=== PATIENT | female | born 1960 | race Caucasian/White ===

== ENCOUNTER 2020-07-06 13:47 | Outpatient (REF) | payer MEDICAID, SELFPAY | END 2020-07-06 13:48 | disposition home or self-care (01) | LOC: HO.LAB 13:47 | PROVIDERS: Visit Provider Internal Medicine | DX: Z20.828 Contact with and (suspected) exposure to other viral communicable diseases (principal) | CPT/HCPCS: C9803; U0003 ==

== ENCOUNTER 2020-11-28 11:02 | Outpatient (REF) | payer MEDICAID, SELFPAY ==
--- NOTE | ~2020-11-28 | MM_ITS ---
EXAMINATION: MM SCREENING DIGITAL BREAST TOMOSYNTHESIS, BILATERAL CLINICAL INFORMATION: Screening. Asymptomatic. The lifetime risk of breast cancer based on the Tyrer-Cuzick Model is 5%. COMPARISON: Mammography: 09/21/2019, 07/09/2018, 06/18/2017 TECHNIQUE: Digital breast tomosynthesis is performed in both the craniocaudal and mediolateral oblique views along with computer-aided detection (CAD). Synthesized 2D images are generated from the tomosynthesis. FINDINGS: There are scattered areas of fibroglandular density (ACR BI-RADS breast composition Category b). There are no significant masses, abnormal calcifications, or other abnormalities. No developing density. The axilla and skin contours are unremarkable. MM/MM tomosynthesis screening BI IMPRESSION: No mammographic evidence of malignancy. ASSESSMENT: BI-RADS 1: Negative RECOMMENDATION: Routine annual mammography screening. This patient's information was entered into a reminder system with a target due date for their next mammogram.
== END 2020-11-28 11:03 | disposition home or self-care (01) ==
LOC: HO.MAMMO 11:02
PROVIDERS: Visit Provider Family Medicine
DX: Z12.31 Encounter for screening mammogram for malignant neoplasm of breast (principal)
CPT/HCPCS: 77063; 77067

== ENCOUNTER 2021-02-28 14:00 | Outpatient (RCR) | payer MEDICAID, SELFPAY | END 2021-03-14 18:12 | disposition home or self-care (01) | LOC: HO.PT 14:00 | PROVIDERS: PCP Family Medicine; Visit Provider Family Medicine | DX: M79.672 Pain in left foot (principal) | CPT/HCPCS: 97035; 97110; 97112; 97140; 97150; 97161 ==

== ENCOUNTER 2021-12-02 10:58 | Outpatient (REF) | payer MEDICAID, SELFPAY ==
--- NOTE | ~2021-12-02 | MM_ITS ---
EXAMINATION: MM SCREENING DIGITAL BREAST TOMOSYNTHESIS, BILATERAL CLINICAL INFORMATION: Screening. Asymptomatic. The lifetime risk of breast cancer based on the Tyrer-Cuzick Model is 5%. COMPARISON: Mammography: 11/28/2020, 09/21/2019, 07/09/2018 TECHNIQUE: Digital breast tomosynthesis is performed in both the craniocaudal and mediolateral oblique views along with computer-aided detection (CAD). Synthesized 2D images are generated from the tomosynthesis. Additional exaggerated right CC view is provided. FINDINGS: There are scattered areas of fibroglandular density (ACR BI-RADS breast composition Category b). There are no significant masses, abnormal calcifications, or other abnormalities. Parenchymal pattern is similar to prior studies. No architectural abnormality or developing density. MM/MM tomosynthesis screening BI IMPRESSION: No mammographic evidence of malignancy. ASSESSMENT: BI-RADS 1: Negative RECOMMENDATION: Routine annual mammography screening. This patient's information was entered into a reminder system with a target due date for their next mammogram.
== END 2021-12-02 10:59 | disposition home or self-care (01) ==
LOC: HO.MAMMO 10:58
PROVIDERS: PCP Family Medicine; Visit Provider Family Medicine
DX: Z12.31 Encounter for screening mammogram for malignant neoplasm of breast (principal)
CPT/HCPCS: 77063; 77067

== ENCOUNTER 2022-02-17 08:55 | Outpatient (REF) | payer MEDICAID, SELFPAY ==
[2022-02-17 11:06] LABS: Hematocrit 38.3 % (37.0-47.0); Hemoglobin 12.3 g/dl (12.0-16.0); Mean Corpuscular HGB Conc 32.1 g/dl (31.0-35.0); Mean Corpuscular Hemoglobin 29.4 pg (27.0-33.0); Mean Corpuscular Volume 91.6 fL (80.0-98.0); Mean Platelet Volume 10.5 fL (9.4-12.3); Platelet Count 225 X10*3/uL (160-400); Red Blood Count 4.18 X10*6/uL (4.20-5.50); Red Cell Distribution Width 13.3 % (11.0-16.0); White Blood Count 6.5 X10*3/uL (4.8-10.8)
[2022-02-17 11:19] LABS: Estimated Average Glucose 117 mg/dL; Hemoglobin A1c % 5.7 %
[2022-02-17 11:28] LABS: Alanine Aminotransferase 20 U/L (0-31); Albumin Level 4.1 g/dL (3.5-5.0); Alkaline Phosphatase 80 U/L (39-117); Anion Gap 11 (12-20); Aspartate Amino Transferase 16 U/L (5-31); Bilirubin Direct 0.2 mg/dL (0.0-0.5); Bilirubin Total 0.3 mg/dL (0.0-1.0); Blood Urea Nitrogen 20 mg/dL (9-16); Calcium 9.1 mg/dL (8.4-10.2); Carbon Dioxide 31 mmol/L (22-29); Chloride 99 mmol/L (96-108); Cholesterol 184 mg/dL; Estimated Glomerular Filt Rate > 60; Glucose Fasting 92 mg/dL (60-99); HDL Cholesterol 56 mg/dL; LDL Cholesterol Calculated 109 mg/dl; Potassium 3.6 mmol/L (3.3-5.1); Sodium 137 mmol/L (135-145); Total Protein 7.2 g/dL (6.5-8.0); Triglycerides 96 mg/dL
[2022-02-17 11:47] LABS: Creatinine Urine 89.08 mg/dL; Microalbumin Urine < 5.0 mg/L
[2022-02-17 11:51] LABS: Free T4 (Free Thyroxine) 0.94 ng/dL (0.71-1.85); Thyroid Stimulating Hormone 2.92 uIU/mL (0.32-4.0); Vitamin D 25-OH Total 39.4 ng/mL (>30)
== END 2022-02-17 08:56 | disposition home or self-care (01) ==
LOC: HO.10HDL 08:55
PROVIDERS: Visit Provider Family Medicine
DX: Z00.00 Encounter for general adult medical examination without abnormal findings (principal); I10 Essential (primary) hypertension
CPT/HCPCS: 36415; 80048; 80061; 80076; 82043; 82306; 83036; 84439; 84443; 85027

== ENCOUNTER 2022-12-15 13:07 | Outpatient (REF) | payer MEDICAID, SELFPAY ==
--- NOTE | ~2022-12-15 | MM_ITS ---
EXAMINATION: MM SCREENING DIGITAL BREAST TOMOSYNTHESIS, BILATERAL CLINICAL INFORMATION: Screening. Asymptomatic. The lifetime risk of breast cancer based on the Tyrer-Cuzick Model is 5%. COMPARISON: Mammography: 12/02/2021, 11/28/2020, 09/21/2019 TECHNIQUE: Digital breast tomosynthesis is performed in both the craniocaudal and mediolateral oblique views along with computer-aided detection (CAD). Synthesized 2D images are generated from the tomosynthesis. FINDINGS: There are scattered areas of fibroglandular density (ACR BI-RADS breast composition Category b). There are no significant masses, abnormal calcifications, or other abnormalities. No architectural abnormality or developing density or significant change from prior studies. The axilla and skin contours are unremarkable. MM/MM tomosynthesis screening BI IMPRESSION: No mammographic evidence of malignancy. ASSESSMENT: BI-RADS 1: Negative RECOMMENDATION: Routine annual mammography screening. This patient's information was entered into a reminder system with a target due date for their next mammogram.
== END 2022-12-15 13:08 | disposition home or self-care (01) ==
LOC: HO.MAMMO 13:07
PROVIDERS: Visit Provider Family Medicine
DX: Z12.31 Encounter for screening mammogram for malignant neoplasm of breast (principal)
CPT/HCPCS: 77063; 77067

== ENCOUNTER 2022-12-17 12:50 | Outpatient (REF) | payer MEDICAID, SELFPAY ==
--- NOTE | ~2022-12-17 | XR_ITS ---
Examination: Right foot and right ankle. CLINICAL INDICATION: Pain for one month. No injury COMPARISON: None. technique:: Right foot 3 views and right ankle 3 views. FINDINGS: Right foot: There is no visible fracture, dislocation or subluxation seen. No bony erosive changes. The soft tissues are normal. Right ankle: The ankle mortise and subtalar joints are normal. There is a moderate size retrocalcaneal and a small calcaneal heel and dorsal tarsometatarsal enthesophytes. There is mild dorsal midfoot soft tissue swelling. No visible acute fracture, dislocation or subluxation seen. XR/XR foot RT min 3V IMPRESSION: 1. Moderate size retrocalcaneal, small calcaneal heel and dorsal tarsometatarsal enthesophytes. There is mild dorsal midfoot soft tissue swelling. 2. No visible acute fracture or dislocation seen.
--- NOTE | ~2022-12-17 | XR_ITS ---
Examination: Right foot and right ankle. CLINICAL INDICATION: Pain for one month. No injury COMPARISON: None. technique:: Right foot 3 views and right ankle 3 views. FINDINGS: Right foot: There is no visible fracture, dislocation or subluxation seen. No bony erosive changes. The soft tissues are normal. Right ankle: The ankle mortise and subtalar joints are normal. There is a moderate size retrocalcaneal and a small calcaneal heel and dorsal tarsometatarsal enthesophytes. There is mild dorsal midfoot soft tissue swelling. No visible acute fracture, dislocation or subluxation seen. XR/XR ankle RT min 3V IMPRESSION: 1. Moderate size retrocalcaneal, small calcaneal heel and dorsal tarsometatarsal enthesophytes. There is mild dorsal midfoot soft tissue swelling. 2. No visible acute fracture or dislocation seen.
== END 2022-12-17 12:51 | disposition home or self-care (01) ==
LOC: HO.HHCX 12:50
PROVIDERS: Visit Provider Family Medicine
DX: M79.671 Pain in right foot (principal)
CPT/HCPCS: 73610; 73630

== ENCOUNTER 2023-04-29 11:25 | Emergency (ER) | payer MEDICAID, SELFPAY ==
--- NOTE | ~2023-04-29 | XR_ITS ---
EXAMINATION: XR ANKLE, RIGHT XR FOOT, RIGHT CLINICAL INFORMATION: Pain. Twisting injury. COMPARISON: Right ankle and foot radiographs dated 12/17/2022. TECHNIQUE: AP, oblique, and lateral views of the right foot and ankle. FINDINGS: No acute fracture or dislocation. Tiny ossicle versus remote unfused fracture fragment adjacent to the lateral malleolus, unchanged. The ankle mortise is maintained. Joint space narrowing with marginal osteophytes at the dorsal aspect of the cuneonavicular and tarsometatarsal joints. Plantar and dorsal calcaneal spurs. Circumferential subcutaneous edema. XR/XR foot RT min 3V IMPRESSION: 1. No acute fracture or dislocation. 2. Circumferential subcutaneous edema. 3. 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 4. Plantar and dorsal calcaneal spurs.
--- NOTE | ~2023-04-29 | XR_ITS ---
EXAMINATION: XR ANKLE, RIGHT XR FOOT, RIGHT CLINICAL INFORMATION: Pain. Twisting injury. COMPARISON: Right ankle and foot radiographs dated 12/17/2022. TECHNIQUE: AP, oblique, and lateral views of the right foot and ankle. FINDINGS: No acute fracture or dislocation. Tiny ossicle versus remote unfused fracture fragment adjacent to the lateral malleolus, unchanged. The ankle mortise is maintained. Joint space narrowing with marginal osteophytes at the dorsal aspect of the cuneonavicular and tarsometatarsal joints. Plantar and dorsal calcaneal spurs. Circumferential subcutaneous edema. XR/XR ankle RT min 3V IMPRESSION: 1. No acute fracture or dislocation. 2. Circumferential subcutaneous edema. 3. 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 4. Plantar and dorsal calcaneal spurs.
--- NOTE | 2023-04-29 11:38 | ED_ITS ---
HPI - Extremity Injury (Lower) General Chief Complaint: Extremity Problem Stated Complaint: R foot pain Time Seen by Provider: 04/29/23 12:49 Source: patient and auto transmission specialist Mode of arrival: ambulatory Limitations: language barrier History of Present Illness HPI Narrative: Patient is a 62 year old assigned female at with no reported medical history presenting to the emergency department today with right ankle pain. Patient states that yesterday she fell and twisted her right ankle and she continues to have pain today. Patient denies any numbness or tingling. Patient denies any head strike or loss of consciousness. Patient denies any dizziness, lightheadedness, abdominal pain, nausea, vomiting, fever, chills, blurry vision, double vision, loss of vision, chest pain, difficulty breathing, shortness of b reath, back pain, night sweats, pain with urination, increased urinary frequency, increased urinary urgency, blood in her urine or stool, syncope or a near syncopal episode, bowel incontinence, bladder incontinence, bowel retention, bladder retention, or any other complaints at this time. MD complaint: ankle injury Onset (ago): day(s) (1) Severity: mild Severity scale (1-10): 3 Other symptoms: none Related Data Allergies Allergy/AdvReac Type Severity Reaction Status Date / Time No Known Allergies Allergy Unverified 06/20/21 14:54 [No Known Allergies*] Review of Systems Constitutional: Constitutional: Reports no additional constitutional complaints, Denies chills, Denies fever(s) and Denies night sweats Eyes: Eyes: Reports no additional eye complaints, Denies blurry vision, Denies change in vision, Denies diplopia, Denies eye discharge, Denies loss of vision and Denies eye pain ENT: Denies dizziness Cardiovascular: Cardiovascular: Reports no additional cardiovascular complaints, Denies chest pain, Denies lightheadedness, Denies Loss of Consciousness and Denies dyspnea Respiratory: Respiratory: Reports no additional respiratory complaints and Denies dyspnea Gastrointestinal: Gastrointestinal: Reports no additional gastrointestinal complaints, Denies abdominal pain, Denies melena, Denies hematochezia, Denies change in bowel habits and Denies change in stool character Genitourinary: Genitourinary: Denies hematuria, Denies urinary frequency, Denies dysuria, Denies urinary incontinence, Denies urinary hesitancy and Denies urinary urgency Musculoskeletal: Musculoskeletal: Reports no additional musculoskeletal complaints, Denies numbness and Denies tingling Comments: right ankle pain and swelling Neurologic: Denies dizziness, Denies loss of vision, Denies numbness and Denies tingling Psychiatric: Psychiatric: Reports no additional psychiatric complaints Endocrine: Endocrine: Reports no additional endocrine complaints Hematologic/Lymphatic: Hematologic/Lymphatic: Reports no additional hematologic/lymphatic complaints Allergic/Immunologic: Allergic/Immunologic: Reports no additional allergic/immunologic complaints PMFSH Past Medical History Attestation statement: The following information was validated with the patient. Source: old records reviewed and nursing notes reviewed Social History Social History Advance Directives: No Physical Exam Vital Signs: Vital Signs: Last Vital Signs Temp 98.2 F 04/29/23 11:39 Pulse 83 04/29/23 11:39 Resp 16 04/29/23 11:39 BP 142/82 H 04/29/23 11:39 Pulse Ox 98 04/29/23 11:39 O2 Del Method Room Air 04/29/23 11:39 BMI result Body Mass Index 32.3 Const: General: cooperative, no acute distress, alert and awake Nutritional Appearance: well nourished Orientation/consciousness: patient oriented x3 Limitations: no limitations HEENT: Head: Yes normal to inspection and Yes atraumatic Ears: hearing grossly normal bilaterally and external ears normal General nose exam: Normal external nose present, no nasal discharge noted and no epistaxis Face and sinus: Yes normal facial exam, No abrasion and No laceration Mouth: Normal oral and palatal mucosa present, no drooling and no muffled voice Eyes: General: appearance normal, both eyes and all related structures Periorbital: periorbital findings normal Eyelids: Yes eyelids normal Conjunctivae: conjunctivae normal Pupils: Equal, round and reactive pupils present EOM: EOMs intact bilaterally Neck: Neck: Yes normal visual inspection, Yes full ROM and Yes no lymphadenopathy Chest: Chest palpation & inspection: normal inspection of the chest Resp: Effort & Inspection: normal respiratory effort and able to speak in complete sentences GI: Inspection: Yes normal to inspection Neuro: General: patient oriented x3 and moves all extremities Cranial nerves: Yes Equal, round and reactive pupils present Cognition (Neuro): normal cognition Motor exam (neuro): 5/5 motor strength present throughout Sensory Exam: Normal double simultaneous stimulation for sensation Coordination: [id number] test normal Extrem: Other: minimal swelling present to the right ankle General: Yes full ROM and Yes capillary refill normal Psych: Appearance: grossly normal Mental Status: mental status grossly normal Affect: normal affect Attitude: cooperative Thought process: Normal thought process present Thought content: Normal thought content present Insight: Good insight present (Psych) Course Course Course Narrative: RME: 62 yo female presents with R ankle pain s/p trip and fall yesterday. Reports twisting her right ankle during fall yesterday. No head strike or LOC. R ankle swelling and diffuse ttp >lateral malleolus. NV intact. ambulating w/mild limp XR ordered Full HPI, ROS and PE to be performed by primary ED provider. Medical Decision Making Medical Decision Making MDM Narrative: Patient is a 62 year old assigned female at with no reported medical history presenting to the emergency department today with right ankle pain and swelling. Patient's physical exam showed minimal swelling to the right ankle but was otherwise unremarkable. Patient's right foot and ankle x-rays showed no acute process. I explained my physical exam findings as well as all test results to the patient. I answered all questions asked by the patient. I stressed the importance of the patient taking her medication as prescribed. I stressed the importance of the patient following up with her primary care provider. I stressed the importance of the patient returning to the emergency department immediately if her symptoms were to worsen or if she were to develop any dizziness, shortness of breath, difficulty breathing, chest pain, blurry vision, loss of vision, nausea, vomiting, abdominal pain, fever, chills, back pain, or any other complaints. Patient verbalized agreement and understanding with this treatment plan and discharge. Differential Diagnosis Differential Diagnoses: The differential diagnosis associated with the presentation includes Right ankle sprain Right ankle strain Right ankle pain Right ankle injury Independent Interpretation I performed an independent interpretation of an: Plain X-Ray Interpretation: My interpretation is in agreement with the radiologist's impression of these imaging studies. EXAMINATION: XR ANKLE, RIGHT XR FOOT, RIGHT CLINICAL INFORMATION: Pain. Twisting injury. COMPARISON: Right ankle and foot radiographs dated 12/17/2022. TECHNIQUE: AP, oblique, and lateral views of the right foot and ankle. FINDINGS: No acute fracture or dislocation. Tiny ossicle versus remote unfused fracture fragment adjacent to the lateral malleolus, unchanged. The ankle mortise is maintained. Joint space narrowing with marginal osteophytes at the dorsal aspect of the cuneonavicular and tarsometatarsal joints. Plantar and dorsal calcaneal spurs. Circumferential subcutaneous edema. XR/XR foot RT min 3V IMPRESSION: 1. No acute fracture or dislocation. 2. Circumferential subcutaneous edema. 3. 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 4. Plantar and dorsal calcaneal spurs. Dictated By: Reid Valdez MD Signed By: Electronically signed by Reid Vadlez MD 04/29/23 1216 Radiology Impression Discussion of test interpretation with radiology: I have reviewed the radiologist's reading. Discharge Plan Discharge Clinical Impression: Ankle sprain Patient Disposition: Home, Self-Care Instructions: Ankle Sprain (DC) Additional Instructions: Follow up with your primary care provider. Return to the emergency department immediately if your symptoms worsen or if you develop any dizziness, shortness of breath, difficulty breathing, chest pain, blurry vision, loss of vision, nausea, vomiting, abdominal pain, fever, chills, back pain, or any other complaints. Itzel un seguimiento con patel proveedor de atenci?n primaria. Regrese al departamento de emergencias inmediatamente si andrey s?ntomas empeoran o si presenta mareos, dificultad para respirar, dificultad para respirar, dolor en el pecho, visi?n borrosa, p?rdida de la visi?n, n?useas, v?mitos, dolor abdominal, fiebre, escalofr?os, dolor de espalda o cualquier otras quejas. Referrals: Suzanne Arthur DO [Primary Care Provider] - Interventions: ED Discharge Assessment Last Done: 04/29/23 13:12 Discharge Date/Time: 04/29/23 13:13 Print Language: Nepali
[2023-04-29 11:39] VITALS: BP 142/82; PULSE 83; RESP 16; TEMP 36.8; O2SAT 98; BMI 32.3
== END 2023-04-29 13:13 | disposition home or self-care (01) ==
PROVIDERS: Emergency Provider Emergency Medicine; PCP Family Medicine
DX: S93.401A Sprain of unspecified ligament of right ankle, initial encounter (principal); X50.1XXA Overexertion from prolonged static or awkward postures, initial encounter; Y93.9 Activity, unspecified; Y92.9 Unspecified place or not applicable; Y99.9 Unspecified external cause status
CPT/HCPCS: 73610; 73630; 99282; 99283

== ENCOUNTER 2023-06-11 09:50 | Outpatient (REF) | payer MEDICAID, SELFPAY ==
[2023-06-11 11:11] LABS: MANUAL DIFF FLAG NO
[2023-06-11 11:36] LABS: Estimated Average Glucose 117 mg/dL; Hemoglobin A1c % 5.7 % (<6.0)
[2023-06-11 12:02] LABS: Creatinine Urine 30.36 mg/dL; Microalbumin Urine < 5.0 mg/L
[2023-06-11 12:08] LABS: Alanine Aminotransferase 17 U/L (0-31); Albumin Level 4.2 g/dL (3.5-5.0); Alkaline Phosphatase 97 U/L (39-117); Anion Gap 12 (12-20); Aspartate Amino Transferase 19 U/L (5-31); Bilirubin Direct 0.1 mg/dL (0.0-0.5); Bilirubin Total 0.3 mg/dL (0.0-1.0); Blood Urea Nitrogen 17 mg/dL (9-16); Calcium 9.5 mg/dL (8.4-10.2); Carbon Dioxide 30 mmol/L (22-29); Chloride 99 mmol/L (96-108); Cholesterol 181 mg/dL (<200); Estimated Glomerular Filt Rate > 60; Free T4 (Free Thyroxine) 0.95 ng/dL (0.71-1.85); Glucose Random 94 mg/dL (60-115); HDL Cholesterol 58 mg/dL (>40); LDL Cholesterol Calculated 110 mg/dL (<100); Potassium 3.7 mmol/L (3.3-5.1); Sodium 137 mmol/L (135-145); Thyroid Stimulating Hormone 2.28 uIU/mL (0.32-4.0); Total Protein 7.9 g/dL (6.5-8.0); Triglycerides 66 mg/dL (<150); Vitamin D 25-OH Total 60.7 ng/mL (>30)
[2023-06-11 12:16] LABS: Basophils Percent Auto 0.5 % (0-2); Eosinophils Absolute Auto 0.2 X10*3/uL (0.0-0.4); Eosinophils Percent Auto 1.9 % (0-4); Hematocrit 39.4 % (37.0-47.0); Hemoglobin 12.9 g/dl (12.0-16.0); Imm Gran Abs Auto 0.03 X10*3/uL (0.00-0.03); Imm Gran Pct Auto 0.4 % (0.0-0.4); Lymphocytes Absolute Auto 2.3 X10*3/uL (1.2-4.9); Lymphocytes Percent Auto 28.2 % (20-40); Mean Corpuscular HGB Conc 32.7 g/dl (31.0-35.0); Mean Corpuscular Hemoglobin 29.7 pg (27.0-33.0); Mean Corpuscular Volume 90.8 fL (80.0-98.0); Mean Platelet Volume 10.3 fL (9.4-12.3); Monocytes Absolute Auto 0.4 X10*3/uL (0.1-1.2); Monocytes Percent Auto 4.9 % (2-11); Neutrophils Absolute Auto 5.2 x10*3/uL (2.0-8.3); Neutrophils Percent Auto 64.1 % (45-73); Platelet Count 262 X10*3/uL (160-400); Red Blood Count 4.34 X10*6/uL (4.20-5.50); Red Cell Distribution Width 13.4 % (11.0-16.0)
== END 2023-06-11 09:51 | disposition home or self-care (01) ==
LOC: HO.HHCL 09:50
PROVIDERS: Visit Provider Family Medicine
DX: I10 Essential (primary) hypertension (principal)
CPT/HCPCS: 36415; 80048; 80061; 80076; 82043; 82306; 82570; 83036; 84439; 84443; 85025

== ENCOUNTER 2023-10-06 15:35 | Outpatient (REF) | payer MEDICAID, SELFPAY ==
[2023-10-08 19:23] LABS: TS Negative Control Passed; TS Panel A 4; TS Panel B 2; TS Positive Control Passed; TSpotTB Negative (Negative)
== END 2023-10-06 15:36 | disposition home or self-care (01) ==
LOC: HO.HHCL 15:35
PROVIDERS: Visit Provider Internal Medicine
DX: Z11.1 Encounter for screening for respiratory tuberculosis (principal)
CPT/HCPCS: 36415; 86481

== ENCOUNTER 2023-12-17 12:33 | Outpatient (REF) | payer MEDICAID, SELFPAY | END 2023-12-17 12:34 | disposition home or self-care (01) | LOC: HO.MAMMO 12:33 | PROVIDERS: PCP Family Medicine; Visit Provider Family Medicine | DX: Z12.31 Encounter for screening mammogram for malignant neoplasm of breast (principal) | CPT/HCPCS: 77063; 77067 ==

== ENCOUNTER → 2023-12-17 13:00 | Outpatient (BNV) | payer MEDICAID, SELFPAY | PROVIDERS: PCP Family Medicine; Visit Provider Radiology Diagnostic Radiology | DX: Z12.31 Encounter for screening mammogram for malignant neoplasm of breast (principal) | CPT/HCPCS: 77063; 77067 ==

== ENCOUNTER 2024-09-16 09:34 | Outpatient (REF) | payer MEDICAID, SELFPAY ==
--- OUTSIDE RECORDS SUMMARY | 2024-09-16 10:03 | XMS_ITS | Encounter Summary ---
Author Organization [employer] Address [address] [place] [address] Care Team Providers Care Provider Relations Advocate Name Role Phone Suzanne Arthur DO Primary Care Provider [phone] Reason for Visit * Reason Onset Date Comments Reschedule Appt 09/05/2024 Provider out 09/05. Encounter Details Date Type Department Care Team ([facility] st Contact Info) Description 09/05/2024 Telephone [facility] [address] [place] [address] Suzanne Arthur DO [address] [place], [place] [phone] Reschedule Appt (Provider out 09/05/24.) Social History Tobacco Use Types Packs/Day Years Used Date Smoking Tobacco: Never Smokeless Tobacco: Never Alcohol Use Standard Drinks/Week Comments Never 0 (1 standard drink = 0.6 oz pur e alcohol) Depression Answer Date Recorded Patient Health Questionnaire-9 Score 0 12/17/2022 Housing Stability Answer Date Recorded What is your housing situation today? I have garrett scott 05/18/[address] you li ve. Do you have problems with any of the following? None of the above 05/18/2023 Food Insecurity Answer Date Recorded Within the past 12 months, y ou worried that your food would run out before you got money to buy more: Never True 05/18/2023 Within the past 12 months,th e food you bought just didn't last and you didn't have enough money to get more: Never True Transportation Answer Date Recorded In the past 12 months, has l ack of transportation kept you from medical appts, meetings, work or from getting things needed for daily living? No 05/18/2023 Utilities Answer Date Recorded In the past 12 months, has t he electric, gas, oil or water company threatened to shut off services in your home? No 05/18/2023 Depression Answer Date Recorded Patient Health Questionnaire-2 Score 0 12/17/2022 Comments No Sex and Gender Information Value Date Recorded Sex Assigned at Female 06/02/2022 10:27 AM EDT Legal Sex Female 10:27 AM EDT Gender Identity Female 06/02/2022 10:27 AM EDT Sexual Orientation Straight 06/02/2022 10 :27 AM EDT documented as of this encounter Miscellaneous Notes * Telephone Encounter - Rosie Zapata MA - 09/05/2024 9:18 AM EST Spoke with patient reschedule follow up HTN 09/16/24 at 9am. documented in this encounter Plan of Treatment Upcoming Encounters Date Type Department Care Team (Late st Contact Info) Description 02/21/2025 8:00 AM EDT Office Visit [facility] AD[facility] DENTAL [address] [place] [address] Joyce Frost documented as of this encounter Visit Diagnoses Not on filedocumented in this encounter Additional Health Concerns Assessment Noted Time PHQ-9 Depression Total Score: 0 12/18/19 23 11:44 AM EDT documented as of this encounter Care Teams Provider Relations Advocate Relationship Specialty Start Date End Date Suzanne Arthur DO [address] [place] [address] PCP - General Family Medicine 03/27/15 documented as of this encounter
--- OUTSIDE RECORDS SUMMARY | 2024-09-16 10:03 | XMS_ITS | Encounter Summary ---
Author Organization [employer] Address [address] [facility] [address] [place] [address] Care Team Providers Care Secondary School Teacher Librarian Name Role Phone Suzanne Arthur DO Primary Care Provider [phone] Encounter Details Date Type Department Care Team ([facility] st Contact Info) Description 09/16/2024 9:00 AM EST Office Visit [facility] MEDICINE [address], [place] [phone] Suzanne Arthur DO [address] [place] [address] Essential hypertension (Primary Dx); Prediabetes; Pain of right heel; Healthcare maintenance; Encounter for immunization Social History Tobacco Use Types Packs/Day Years Used Date Smoking Tobacco: Never Smokeless Tobacco: Never Alcohol Use Standard Drinks/Week Comments Never 0 (1 standard drink = 0.6 oz pur e alcohol) Depression Answer Date Recorded Patient Health Questionnaire-9 Score 0 09/16/2024 Patient Health Questionnaire-9 Score 0 09/16/2024 Last PHQ-9: Questionnaire Data Not on file 0 09/16/2024 Housing Stability Answer Date Recorded What is [...] Date Recorded Patient Health Questionnaire-2 Score 0 09/16/2024 Internet Access Answer Date Recorded Internet Access Q1 Yes 09/16/2024 Internet Access Q2 Not on file 09/16/2024 Comments No Sex and Gender Information Value Date Recorded Sex Assigned at Female 06/02/2022 10:27 AM EDT Legal Sex Female 10:27 AM EDT Gender Identity Female 06/02/2022 10:27 AM EDT Sexual Orientation Straight 06/02/2022 10 :27 AM EDT documented as of this encounter Last Filed Vital Signs Vital Sign Reading Time Taken Comments Blood Pressure 138/70 09/16/2024 9:02 AM EST Pulse 83 09/16/2024 9:02 AM EST Temperature 35.9 ??C (96.6 ??F) 09/16/2024 9:02 AM ES T Respiratory Rate 21 09/16/2024 9:02 AM EST Oxygen Saturation 99% 09/16/2024 9:02 AM EST Inhaled Oxygen Concentration - - Weight 68 kg (150 lb) 09/16/2024 9:02 AM EST Height 149.9 cm (4' 11 ) 09/16/2024 9:02 AM EST Body Mass Index 30.3 09/16/2024 9:02 AM EST documented in this encounter Plan of Treatment Upcoming Encounters Date Type Department Care Team (Late st Contact Info) Description 02/21/2025 8:00 AM EDT Office Visit [facility] ADULT DENTAL [address] [place] [address] Joyce Frost Scheduled Orders Name Type Priority Associated Diagnoses Orde r Schedule T4, Free Lab Routine Essential hypertension Prediabetes Expected: 09/16/2024 (Approximate), Expires: 09/16/2025 Vitamin D, 25-Hydroxy, Total, Immunoassay Lab Routine Essential hypertension Prediabetes Expected: 09/16/2024 (Approximate), Expires: 09/16/2025 Lipid Panel, Standard Lab Routine Essential hypertension Prediabetes Expected: 09/16/2024 (Approximate), Expires: 09/16/2025 TSH Lab Routine Essential hypertension Prediabetes Expected: 09/16/2024 (Approximate), Expires: 09/16/2025 Hepatic Function Panel Lab Routine Essential hypertension Prediabetes Expected: 09/16/2024 (Approximate), Expires: 09/16/2025 Hemoglobin A1c Lab Routine Essential hypertension Prediabetes Expected: 09/16/2024 (Approximate), Expires: 09/16/2025 Basic Metabolic Panel Lab Routine Essential hypertension Prediabetes Expected: 09/16/2024 (Approximate), Expires: 09/16/2025 CBC Lab Routine Essential hypertension Prediabetes Expected: 09/16/2024, Expires: 09/16/2025 Albumin, Random Urine W/Creatinine Lab Routine Essential hypertension Prediabetes Expected: 09/16/2024 (Approximate), Expires: 09/16/2025 documented as of this encounter Visit Diagnoses Diagnosis Essential hypertension- Primary Unspecified essential hypertension Prediabetes Other abnormal glucose Pain of right heel Healthcare maintenance Encounter for immunization documented in this encounter Additional Health Concerns Assessment Noted Time PHQ-9 Depression Total Score: 0 09/16/19 25 9:04 AM EST documented as of this encounter Care Teams Secondary School Teacher Librarian Relationship Specialty Start Date End Date Suzanne Arthur DO [address] [place] [address] PCP - General Family Medicine 03/27/15 documented as of this encounter
--- OUTSIDE RECORDS SUMMARY | 2024-09-16 10:03 | XMS_ITS | Encounter Summary ---
Author Organization [employer] Address [address] [facility] 7t [place] [address] Care Team Providers Care Forge Hand Name Role Phone Sandhya Suzanne Primary Care Provider [phone] Reason for Visit * Reason Onset Date Comments referral 06/05/2023 Encounter Details Date Type Department Care Team ([facility] st Contact Info) Description 06/05/2023 Telephone [facility]AL [address] [place] [address] Caden Elizalde DDS [address] [place] [address] referral Social History Tobacco Use Types Packs/Day Years Used Date Smoking Tobacco: Never Smokeless Tobacco: Never Depression Answer Date Recorded Patient Health Questionnaire-9 [...] Patient Health Questionnaire-2 Score 0 12/17/2022 Comments Unknown Sex and Gender Information Value Date Recorded Sex Assigned at Female 06/02/2022 10:27 AM EDT Legal Sex Female 10:27 AM EDT Gender Identity Female 06/02/2022 10:27 AM EDT Sexual Orientation Straight 06/02/2022 10 :27 AM EDT documented as of this encounter Miscellaneous Notes * Telephone Encounter - Queenie Mandel - 06/05/2023 2:50 PM EDT Nayely from [facility] stated that patient called to schedule a periodontal consultation. They raman looking for referral. Nothing scanned in. Their fax number is [phone]. Phone number to office if need to reach is [phone]. documented in this encounter Plan of Treatment Upcoming Encounters Date Type Department Care Team (Late st Contact Info) Description 02/21/2025 8:00 AM EDT Office Visit [facility]ULT [facility] [address] [place] [address] Joyce Frost documented as of this encounter Visit Diagnoses Not on filedocumented in this encounter Additional Health Concerns Assessment Noted Time PHQ-9 Depression Total Score: 0 12/18/19 23 11:44 AM EDT documented as of this encounter Care Teams Forge Hand Relationship Specialty Start Date End Date Suzanne Arthur DO [address] [place] [address] PCP - General Family Medicine 03/27/15 documented as of this encounter
--- OUTSIDE RECORDS SUMMARY | 2024-09-16 10:03 | XMS_ITS | Encounter Summary ---
Author Organization [facility] Address [address] [place] [address] 7t [place] [address] Care Team Providers Care Minute Clerk For Basic Traffic Name Role Phone Suzanne Arthur DO Primary Care Provider [phone] Encounter Details Date Type Department Care Team (Latest Contact Info) Description 08/20/2021 Abstract [facility] Dental, Provider, DDS Social History Tobacco Use Types Packs/Day Years Used Date Smoking Tobacco: Never Assessed Comments Unknown Sex and Gender Information Value Date Recorded Sex Assigned at Female 06/02/2022 10:27 AM EDT Legal Sex Female 10:27 AM EDT Gender Identity Female 06/02/2022 10:27 AM EDT Sexual Orientation Straight 06/02/2022 10 :27 AM EDT documented as of this encounter Plan of Treatment Upcoming Encounters Date Type Department Care Team (Late st Contact Info) Description 02/21/2025 8:00 AM EDT Office Visit [facility] ADULT DENTAL [address] [place] [address] Joyce Frost documented as of this encounter Visit Diagnoses Not on filedocumented in this encounter Care Teams Minute Clerk For Basic Traffic Relationship Specialty Start Date End Date Suzanne Arthur DO [address] [place] [address] PCP - General Family Medicine 03/27/15 documented as of this encounter
--- OUTSIDE RECORDS SUMMARY | 2024-09-16 10:03 | XMS_ITS | Encounter Summary ---
Author Organization [employer] Address [address] [facility] [address] [place] [address] Care Team Providers Care Hand Therapist Name Role Phone Suzanne Arthur DO Primary Care Provider [phone] Reason for Visit * Reason Onset Date Comments Med Refill 12/03/2022 Encounter Details Date Type Department Care Team ([facility] st Contact Info) Description 12/03/2022 Telephone [facility] [address] [place] [address] Suzanne Arthur DO [address] [place] [address] Med Refill Social History Tobacco Use Types Packs/Day Years Used Date Smoking Tobacco: Never Assessed Comments Unknown Sex and Gender Information Value Date Recorded Sex Assigned at Female 06/02/2022 10:27 AM EDT Legal Sex Female 10:27 AM EDT Gender Identity Female 06/02/2022 10:27 AM EDT Sexual Orientation Straight 06/02/2022 10 :27 AM EDT documented as of this encounter Miscellaneous Notes * Telephone Encounter - Suzanne Booth LPN - 12/03/2022 10:44 AM EDT Medications were sent to [facility] on 08/07/22 90 day supply with 1 refill. * Telephone Encounter - Willy Woodruff - 12/03/2022 10:26 AM EDT Tc from pt requesting med refill hydroCHLOROthiazide (HYDRODiuril) 25 MG tablet enalapril (Vasotec) 20 MG tablet documented in this encounter Plan of Treatment Upcoming Encounters Date Type Department Care Team (Late st Contact Info) Description 02/21/2025 8:00 AM EDT Office Visit [facility] ADULT DENTAL [address] [place] [address] Joyce Frost documented as of this encounter Visit Diagnoses Not on filedocumented in this encounter Care Teams Hand Therapist Relationship Specialty Start Date End Date Suzanne Arthur DO [address] [place] [address] PCP - General Family Medicine 03/27/15 documented as of this encounter
--- OUTSIDE RECORDS SUMMARY | 2024-09-16 10:03 | XMS_ITS | Clinical Summary ---
Author Organization [employer] Address [address] [facility] 7t [place] [address] Care Team Providers Care Media Professional Name Role Phone CarlosSuzanne galvan Primary Care Provider Allergies No known active allergies Medications Diclofenac Sodium 1 % gel Apply 2 g topically if needed in the morning, at noon, in the evening, and at bedtime (pain). 150 g 3 3 Active cholecalciferol (Vitamin D-3) 50 MCG (1999) tabletIndications :Vitamin D deficiency TAKE 1 TABLET BY MOUTH DAILY 90 tablet 3 4 Active enalapril (Vasotec) 20 MG tabletIndications :Essential hypertension TAKE 1 TABLET BY MOUTH DAILY 90 tablet 1 4 Active hydroCHLOROthiazi de (HYDRODiuril) 25 MG tabletIndications :Essential hypertension Take 1 tablet by mouth every day 90 tablet 1 4 Active Active Problems Problem Noted Date Diagnosed Date Pain of right heel 12/10/2023 Assessment & Plan (12/10/2023 3:06 PM EDT): Sx improved -foot XR with calcaneal spurs APR 2023 -cont boot prn -encouraged ice therapy -cont tylenol and diclofenac gel -f/u with podiatry as scheduled Healthcare maintenance 10/06/2023 Assessment & Plan (12/10/2023 3:06 PM EDT): -s/p flu vaccine MAY 2023 -she declines COVID vaccine -encouraged RSV vaccine -s/p Tdap APR 2015 -encouraged shingrix vaccine -mammo BIRADS 01 DEC 2022, appt next week -s/p hysterectomy 2/2 fibroids with no h/o abnml pap smears per pt, pap wnl/HPV negative JUL 2018, no need for further pap screening -screening colonoscopy wnl AUG 2015 -A1c 5.7%, LDL 110 JUN 2023 -STI/HIV screen negative APR 2019 Assessment & Plan (10/07/2023 10:13 AM EST): See HPI Tuberculosis screening 10/06/2023 Prediabetes 10/06/2023 Assessment & Plan (12/10/2023 3:05 PM EDT): A1c 5.7% JUN 2023 -encouraged dietary changes for prevention of DM Assessment & Plan (10/07/2023 10:12 AM EST): Today extensive discussion was done about life style modifications I advise healthy diet (low calorie) and cardiovascular exercise Periodontal disease 05/25/2023 Dental calculus 05/25/2023 Generalized gingival recession, moderate 023 Vitamin D deficiency 11/06/2016 Essential hypertension 05/25/2015 Assessment & Plan (12/10/2023 3:05 PM EDT): BP controlled -cont enalapril and HCTZ daily -cont home BP monitoring -Cr/GFR and urine microalbumin wnl JUN 2023, repeat next visit -there is nml screening EKG in chart -s/p optho eval APR 2023 at [facility] for 2 year f/u Assessment & Plan (10/07/2023 10:12 AM EST): Maintenance: BMP: up to date Lipid Panel: up to date ASCVD Risk: 7% which is borderline - Aerobic exercise to reduce BP. Initial goal of 30 min walk 3-5x/week. Increase as tolerated. - low-sodium diet (goal: <2g/day) and heart healthy diet such as DASH to reduce BP and prevent ASCVD. - Home BP monitoring 1-2 x day with goal of <140/90. - Seek immediate medical attention for chest pain, palpitations, SOB, syncope, or sudden changes in mental status. - Do not change or discontinue current prescriptions without first consulting health care provider BMI 30.0-30.9,adult 05/25/2015 Resolved Problems Problem Noted Date Diagnosed Date Resolved Date Missing teeth, acquired 05/25/202306/03 Encounters Date Type Department Care Team Description 09/16/2024 9:00 AM EST Office Visit [facility] [address] [place] [id number] Suzanne Arthur DO Essential hypertension (Primary Dx); Prediabetes; Pain of right heel; Healthcare maintenance; Encounter for immunization 09/16/2024 Travel 09/05/2024 Telephone [facility] [address] [place] [phone] Suzanne Arthur DO Reschedule Appt (Provider out 09/05/24.) 09/05/2024 Travel 08/29/2024 Travel 08/23/2024 8:00 AM EST Office Visit [facility] ADULT DENTAL [address] [place] [address] SantoshJoyce Dental plaque (Primary Dx); Dental calculus 08/16/2024 Travel 08/08/2024 Travel 08/05/[address] [address] Rosie Zapata [place] Recall Follow Up Appt. 08/05/2024 Travel 07/11/2024 Refill [facility] [address] [place] [address] Suzanne Arthur DO Essential hypertension from Last 3 Months Immunizations Name Administration Dates Next Due Influenza injectable quadriv alent IIV4 with preservative 05/29/2021,06/03/2018,04/16/2017 Influenza injectable quadriv alent preservative free 05/15/2023,05/26/2022,05/24/2020,2018,05/24/2016,04/23/2015 Influenza, IIV3, injectable 05/17/2024 Pneumococcal Conjugate PCV 20 09/16/2024 RSV Bivalent 05/17/2024 Tdap 04/10/2015 Zoster, Recombinant 08/15/2024,05/13/2024 Family History Medical History Relation Name Comments Hyperlipidemia Father Hypertension Father Cancer Father's Brother Hyperlipidemia Mother Hypertension Mother Relation Name Status Comments Father Father's Brother Mother Social History Tobacco Use Types Packs/Day Years Used Date Smoking Tobacco: Never Smokeless Tobacco: Never Tobacco Cessation:Counseling Given: Not Answered Alcohol Use Standard Drinks/Week Comments Never 0 [...] Orientation Straight 06/02/2022 10 :27 AM EDT Last Filed Vital Signs Vital Sign Reading [...] Mass Index 30.3 09/16/2024 9:02 AM EST Plan of Treatment Upcoming Encounters Date Type Department Care Team (Late st Contact Info) Description 02/21/2025 8:00 AM EDT Office Visit [facility] ADULT D[facility] [address] [place] [address] Joyce Frost Health Maintenance Due Date Last Done Comments CT Colonography 1960 FIT DNA/Cologuard 1960 FIT 1960 FOBT 1960 HIV Screening 1960 Sigmoidoscopy 1960 Hepatitis C Screening 1978 COVID-19 Vaccine ( season) 2024 08/30/2021 Diabetes: Hemoglobin A1C 2024 023, 02/17/2022, 09/10/2020 Dental X-Ray: Full Mouth 08/21/2024 08/20/2021 Dental Oral Exam 02/21/2025 08/23/2024, 05/25/2023 Dental Prophylaxis 02/21/2025 08/23/2024, 0 01/21/2024, 05/25/2023, Additional history exists DTaP/Tdap/Td Vaccines (2 - Td or Tdap) 04/10/2025 04/10/2015 Dental X-Ray: Bitewings 08/24/2025 08/23/19 25, 05/25/2023, 08/20/2021 Colonoscopy 08/28/2025 08/28/2015 Colorectal Cancer Screening 08/28/2025 Alcohol/Substance Use Screening 09/16/2025 09/16/2024 Depression Screening 09/16/2025 09/16/2024, 09/16/19 SDOH Screening 09/16/2025 09/16/2024 Tobacco Screening 09/16/2025 09/16/2024 Mammogram 12/16/2025 12/17/2023, 12/01, 12/15/2022, Additional history exists Lipid Panel 2028 2023, 01/31, 09/10/2020 Cervical Cancer Screening Discontinued HPV/Cotest Discontinued 07/30/2018 Influenza Vaccine Completed 05/17/2024, , 05/26/2022, Additional history exists RSV Patients and Patients Aged 60 years or older Completed 05/17/2024 Zoster Vaccines Completed 08/15/2024, 05/13/2024 Pneumococcal Vaccine: 50+ Years Completed 09/16/2024 HIB Vaccines Aged Out No longer eligi ble based on patient's age to complete this topic HPV Vaccines Aged Out No longer eligi ble based on patient's age to complete this topic Hepatitis A Vaccines Aged Out No long er eligible based on patient's age to complete this topic Hepatitis B Vaccines Aged Out No long er eligible based on patient's age to complete this topic IPV Vaccines Aged Out No longer eligi ble based on patient's age to complete this topic Meningococcal Vaccine Aged Out No charles noemy eligible based on patient's age to complete this topic Pap Smear Discontinued RSV under 20 months Aged Out No longe r eligible based on patient's age to complete this topic Rotavirus Vaccines Aged Out No longer eligible based on patient's age to complete this topic Procedures Procedure Name Priority Date/Time Associated Diagnosis Comments PERIODIC ORAL EVALUATION - ESTABLISHED PATIENT Routine 08/23/2024 8:00 AM EST INTRAORAL - PERIAPICAL EACH ADDITIONAL RADIOGRAPHIC IMAGE Routine 08/23/2024 8:00 AM EST INTRAORAL - PERIAPICAL EACH ADDITIONAL RADIOGRAPHIC IMAGE Routine 08/23/2024 8:00 AM EST INTRAORAL - PERIAPICAL FIRST RADIOGRAPHIC IMAGE Routine 08/23/2024 8:00 AM EST ORAL HYGIENE INSTRUCTIONS Routine 08/23/2024 8:00 AM EST Dental plaque Dental calculus CASE PRESENTATION, DETAILED AND EXTENSIVE TREATMENT PLANNING Routine 08/23/2024 8:00 AM EST BITEWINGS - 4 RADIOGRAPHIC IMAGES Routine 08/23/2024 8:00 AM EST PROPHYLAXIS - ADULT Routine 08/23/2024 8 :00 AM EST Dental plaque Dental calculus BI MAMMOGRAM SCREENING TOMOSYNTHESIS BILATERAL Routine 12/17/2023 12:52 PM EDT HEMOGLOBIN A1C Routine 2023 9:56 AM EST Essential hypertension LIPID PANEL, STANDARD Routine 2023 9:56 AM EST Essential hypertension INTRAORAL - COMPLETE SERIES OF RADIOGRAPHIC IMAGES Routine 08/20/2021 12:00 AM EST ZZZ HISTORICAL HPV MRNA E6/E7 Routine 07/30/2018 11:20 AM EST HM COLONOSCOPY Routine 08/28/2015 11:31 AM EST from Last 3 Months or Most Recently Relevant to Health Maintenance Results * BI Mammogram Screening Tomosynthesis Bilateral (12/17/2023 12:52 PM EDT) Anatomical Region Laterality Modality Breast Bilateral Mammography 12/17/2023 12:5 2 PM EDT Narrative 01/18/2024 7:07 AM EDT ? [facility] [place] ? [address] ?[place] [address] ? Mammography Report ? Signed ? Patient: Urena Humphrey,Hiral ?MR#: ?? [id number] ? : 1960 ?Acct:[id number] ? Age/Sex: 63 / F ?ADM Date: 12/16/ ? Loc: HO.MAMMO ? Attending Dr: Suzanne Arthur DO ? Ordering Physician: Suzanne Arthur DO ?Results: 1N ?? egative ? Date of Service: /16/24 ?Follow Up: 1 Year From Orig ?? inal Mammogram ? Procedure(s): MM tomosynthesis screening BI ?? Accession Number(s): [id number] ? cc: Suzanne Arthur DO ? EXAMINATION: ?? MM SCREENING DIGITAL BREAST TOMOSYNTHESIS, BILATERAL ? CLINICAL INFORMATION: ? Screening. Asymptomatic. ? COMPARISON: ?? Mammography: This study is compared with prior exams dating back to ?? 2018. ? TECHNIQUE: ?? Digital breast tomosynthesis is performed in both the craniocaudal and ?? mediolateral oblique views along with computer-aided detection (CAD). ?? Synthesized 2D images are generated from the tomosynthesis. ? FINDINGS: ?? The breasts are almost entirely fatty (ACR BI-RADS breast composition ?? Category a). ? There are no significant masses, abnormal calcifications, or other ?? abnormalities. ? MM/MM tomosynthesis screening BI ?? IMPRESSION: ?? No mammographic evidence of malignancy. ? ASSESSMENT: ? BI-RADS BI-RADS 1 - Negative ? RECOMMENDATION: ?? Routine annual mammography screening. ? 1 year F/U ? This examination should not preclude the clinical evaluation of a ?? suspicious palpable abnormality. ? This patient's information was entered into a reminder system with a ?? target due date for their next mammogram. ? Dictated By: ?Caty Mills MD ? Signed By: ?<Electronically signed by Caty Mills MD in OV> ? 01/18/24 0703 ? DD/ 1252 ? TD/TT: ? Personnel Scheduler: ? Procedure Note Ramana Hamm - 01/18/2024 Sheila [facility] [address] [place], [place] [address] Mammography Report Signed Patient: Urena Humphrey,Tequila DMR#: [id number] : 1960Acct:[id number] Age/Sex: 63 / FADM Date: 12/17/23 Loc: HO.MAMMO Attending Dr: Suzanne Arthur DO Ordering Physician: Suzanne Arthurults: 1N egative Date of Service: 12/17/23Follow Up: 1 Year From Orig inal Mammogram Procedure(s): MM tomosynthesis screening BI Accession Number(s): [id number] cc: Suzanne Arthur DO EXAMINATION: MM SCREENING DIGITAL BREAST TOMOSYNTHESIS, BILATERAL CLINICAL INFORMATION: Screening. Asymptomatic. COMPARISON: Mammography: This study is compared with prior exams dating back to 2018. TECHNIQUE: Digital breast tomosynthesis is performed in both the craniocaudal and mediolateral oblique views along with computer-aided detection (CAD). Synthesized 2D images are generated from the tomosynthesis. FINDINGS: The breasts are almost entirely fatty (ACR BI-RADS breast composition Category a). There are no significant masses, abnormal calcifications, or other abnormalities. MM/MM tomosynthesis screening BI IMPRESSION: No mammographic evidence of malignancy. ASSESSMENT: BI-RADS BI-RADS 1 - Negative RECOMMENDATION: Routine annual mammography screening. 1 year F/U This examination should not preclude the clinical evaluation of a suspicious palpable abnormality. This patient's information was entered into a reminder system with a target due date for their next mammogram. Dictated By: Caty Mills MD Signed By: <Electronically signed by Caty Mills MD in OV> 01/18/24 0703 DD/ 1252 TD/TT: Personnel Scheduler: us Suzanne Arthur DO IMG BI PROCEDURES Final Resu lt * Hemoglobin A1c (2023 9:56 AM EST) Hemoglobin A1c 5.7 <6.0 % [facility] Comment:Hemoglobin A1C Refer ence Range Adults: 4.8 - 6.0 % Non diabetic: < 6.0 % Goal: < 7.0 %Additional Action Suggested: > 8.0 %Note: Hemoglobin A1c results are invalid for patients with abnormal amounts of HbF. Blood transfusions may impact the HbA1c concentration in the patient sample. Estimated Average Glucose 117 mg/dL [facility] Comment:eAG = Estimated ave rage glucose which is %A1C expressed asaverage glucose, using the formula of the [id number] Glucose study (ADAG), Diabetes Care, Vol.31,#8,Aug. 2007 Blood Venous blood specimen / Unknown 2023 9:56 AM EST 2023 11:06 AM EST Suzanne Arthur DO LAB BLOOD ORDERABLES Final R esult [facility] [address] [place] [address] [phone] * (ABNORMAL) Lipid Panel, Standard (2023 9:56 AM EST) Triglycerides 66 <150 mg/dL [facility] Comment:Desirable Triglyceri de: less than 150 mg/dLBorderline High Triglyceride 150-199 mg/dLHigh Triglyceride: 200-499 mg/dLVery High Triglyceride: greater than or equal to 5OO mg/dL Cholesterol 181 <200 mg/dL [facility] Comment:Desirable Cholestero l: less than 200 mg/dLBorderline High Cholesterol: 200-239 mg/dLHigh Cholesterol: greater than 239 mg/dL LDL Cholesterol Calculated 110(H) <100 mg/dL [facility] Comment:Desirable LDL: less than 100 mg/dLNear Optimal/Above Optimal LDL: 110- 129 mg/dLBorderline High LDL: 130-159 mg/dLHigh LDL: 160-189 mg/dLVery High LDL: greater than or equal to 190 mg/dL HDL Cholesterol 58 >40 mg/dL [facility] Comment:Desirable HDL: great er than 40 mg/dL Note: This HDL assay may give artificially low results in patients with liver disease. Blood Venous blood specimen / Unknown 2023 9:56 AM EST 2023 11:06 AM EST Suzanne Arthur DO LAB BLOOD ORDERABLES Final R esult [facility] [address] [place] [address] [phone] * HPV mRNA E6/E7 (07/30/2018 11:20 AM EST) HPV mRNA E6/E7 Not Detected NOT DETECTED [facility] Comment: This test was performed using the APTIMA(R) HPV Assay ([employer] This assay detects E6/E7 viral messenger RNA (mRNA) from 14 high-risk HPV types (16,18,31,33,35,39,45,51, 52,56,58,59,66,68). For additional information please refer to: http://education.Atzip/faq/NTA211v7 (This link is being provided for informational/ educational purposes only.) The analytical performance characteristics of this assay have been determined by [employer] [place], [place]. The modifications have not been cleared or approved by the FDA. This assay has been validated pursuant to the CLIA regulations and is used for clinical purposes. Test Performed by [facility], [facility], [address] [place] [address] Phill Walden M.D., Ph.D., Director of Laboratories , CLIA [id number] Please note: ??Effective 04/14/2016, HPV testing will be performed using [employer]'s APTIMA test which targets mRNA. Detecting mRNA instead of DNA, as in older methods, offers significant improvements in specificity. 07/30/2018 11:2 0 AM EST us Suzanne Arthur DO HISTORICAL/NON ORDERABLE LAB S Final Result [facility] [address] * Hm Colonoscopy (08/28/2015 11:31 AM EST) us Historical Provider MD HEALTH MAINTENANCE Final Result from Last 3 Months or Most Recently Relevant to Health Maintenance Insurance HSN FULL [facility] C3 DENTAL-[facility] MEDICAID STAND ADULT Care Teams Media Professional Relationship Specialty Start Date End Date Suzanne Arthur DO [address] [place] [phone] PCP - General Family Medicine 03/27/15
--- OUTSIDE RECORDS SUMMARY | 2024-09-16 10:03 | XMS_ITS | Encounter Summary ---
Author Organization [employer] Address [address] [facility] [address] [place] [address] Care Team Providers Care Rawhide Trimmer Name Role Phone SandhyaSuzanne Primary Care Provider [phone] Reason for Visit * Reason Comments Routine Cleaning Dental Exam Encounter Details Date Type Department Care Team ([facility] st Contact Info) Description 08/23/2024 8:00 AM EST Office Visit [facility] ADULT DENTAL [address] [place] [address] Joyce Frost Dental plaque (Primary Dx); Dental calculus Social History Tobacco Use Types Packs/Day Years [...] Sign Reading Time Taken Comments Blood Pressure 134/82 08/23/2024 8:02 AM EST Pulse - - Temperature - - Respiratory Rate - - Oxygen Saturation - - Inhaled Oxygen Concentration - - Weight - - Height - - Body Mass Index - - documented in this encounter Progress Notes * Caden Elizalde DDS - 08/23/2024 8:00 AM EST Dental procedures in this visit D1110 - PROPHYLAXIS - ADULT (Completed) Service provider: Joyce Altman provider: Caden Elizalde DDS D0274 - BITEWINGS - 4 RADIOGRAPHIC IMAGES (Completed) Service provider: Joyce Altman provider: Caden Elizalde DDS D9450 - ADJUNCTIVE GENERAL SERVICES - PROFESSIONAL VISITS - CASE PRESENTATION, SUBSEQUENT TO DETAILED AND EXTENSIVE TREATMENT PLANNING (Completed) Service provider: Joyce Altman provider: Caden Elizalde DDS D1330 - ORAL HYGIENE INSTRUCTIONS (Completed) Service provider: Joyce Altman provider: Caden Elizalde DDS D0220 - INTRAORAL - PERIAPICAL FIRST RADIOGRAPHIC IMAGE (Completed) Service provider: Joyce Frost Billkelsey provider: Caden Elizalde DDS D0230 - INTRAORAL - PERIAPICAL EACH ADDITIONAL RADIOGRAPHIC IMAGE (Completed) Service provider: Joyce Frost Billkelsey provider: Caden Elizalde DDS D0230 - INTRAORAL - PERIAPICAL EACH ADDITIONAL RADIOGRAPHIC IMAGE (Completed) Service provider: Joyce Altman provider: Caden Elizalde DDS D0120 - PERIODIC ORAL EVALUATION - ESTABLISHED PATIENT Patient ID: Tequila Yin is a 64 y.o. female. Time Out: Timeout Date: 08/23/24, Timeout Time: 0804 (prophy and exam adult dental) Location: [facility] Tooth: Maxilla and Mandible Procedure: Exam, X-rays, and Prophylaxis Verified the above with patient, medical assistant float, and provider. Confirmed via patient's chart, intraorally and by radiographs. Grain Elevator Superintendent: not applicable Chief Complaint Patient presents with Routine Cleaning Dental Exam Medical Hx: Vitals: Blood pressure 134/82. Past Medical History: Diagnosis Date Bleeding gums Hypertension Medications: Outpatient Encounter Medications as of 08/23/2024 Medication Sig Dispense Refill cholecalciferol (Vitamin D-3) 50 MCG (1999) tablet TAKE 1 TABLET BY MOUTH DAILY 90 tablet 3 enalapril (Vasotec) 20 MG tablet TAKE 1 TABLET BY MOUTH DAILY 90 tablet 1 hydroCHLOROthiazide (HYDRODiuril) 25 MG tablet Take 1 tablet by mouth every day 90 tablet 1 Diclofenac Sodium 1 % gel Apply 2 g topically if needed in the morning, at noon, in the evening, and at bedtime (pain). 150 g 3 No facility-administered encounter medications on file as of 08/23/2024. Objective HPI Asymptomatic Head and Neck Exam: Lymph Nodes, Lips, Palate, Buccal Mucosa, Floor of Mouth, Tongue, Tonsils, Alveolar Ridges, Oropharynx, Salivary Ducts, and Vestibules appear normal . Details: Skin pigmentations previously detected / monitored OCS: negative Dental Exam As charted Bone loss Missing teeth acquired Maxillary partial functioning well No new carious lesions detected Reference tooth chart for additional findings. Oral Cancer Risk: Low Risk Oral Hygiene Instructions: [place] two times daily, modified leonard technique, Floss daily, Electric toothbrush, Soft bristle toothbrush, [place] Tongue Caries Risk Assessment: Low- no risk factor Assessment/Plan BRENNAN X Ray Prophy Recall Patient tolerated procedure well, all questions answered and expressed understanding. Dismissed in good condition. NV: 6 mos recall Associate Teacher: Joyce Frost Dentist: Caden Elizalde DDS * Joyce Frost - 08/23/2024 8:00 AM EST Patient ID: Tequila Yin is a 64 y.o. female. Time Out: Timeout Date: 08/23/24, Timeout Time: 0804 (prophy and exam adult dental) Location: [facility] Tooth: Maxilla and Mandible Procedure: Exam, X-rays, and Prophylaxis Verified the above with patient, medical assistant float, and provider. Confirmed via patient's chart, intraorally and by radiographs. Grain Elevator Superintendent: not applicable Medical Hx: Vitals: Blood pressure 134/82. Medications, Med Hx reviewed with patient and updated in chart. Treatment Provided Dental procedures in this visit D1110 - PROPHYLAXIS - ADULT (Completed) Service provider: Joyce Altman provider: Caden Elizalde DDS D0274 - BITEWINGS - 4 RADIOGRAPHIC IMAGES (Completed) Service provider: Joyce Altman provider: Caden Elizalde DDS D9450 - ADJUNCTIVE GENERAL SERVICES - PROFESSIONAL VISITS - CASE PRESENTATION, SUBSEQUENT TO DETAILED AND EXTENSIVE TREATMENT PLANNING (Completed) Service provider: Joyce Altman provider: Caden Elizalde DDS D1330 - ORAL HYGIENE INSTRUCTIONS (Completed) Service provider: Joyce Altman provider: Caden Elizalde DDS D0220 - INTRAORAL - PERIAPICAL FIRST RADIOGRAPHIC IMAGE (Completed) Service provider: Joyce Altman provider: Caden Elizalde DDS D0230 - INTRAORAL - PERIAPICAL EACH ADDITIONAL RADIOGRAPHIC IMAGE (Completed) Service provider: Joyce Altman provider: Caden Elizalde DDS D0230 - INTRAORAL - PERIAPICAL EACH ADDITIONAL RADIOGRAPHIC IMAGE (Completed) Service provider: Joyce Altman provider: Caden Elizalde DDS D0120 - PERIODIC ORAL EVALUATION - ESTABLISHED PATIENT Instruments Used: Ultrasonic Scalers, Hand Scalers, and Prophy angle Fluoride: N/A Oral Cancer Screening: No lesions Head/Neck Exam: No Lesions Calculus: Moderate, Generalized, and Subgingival Plaque: Moderate and Generalized Stain: Moderate and Generalized Bleeding: Moderate and Generalized Gingiva: Perio Charting Completed, Recession- generalized, and Erythematous OH: Poor Perio Chart: Completed - pocketing up to 7 mm with generalized recession and generalized bone loss.Patient is aware of poor periodontal prognosis. Exam with Dr. Elizalde - no decay noted. Patient had a very difficult time biting on xray sensor for left side. Oral hygiene instructions provided to patient including brushing technique and flossing. Recommendations: [place] two times daily, modified leonard technique, Floss daily, Electric toothbrush, Soft bristle toothbrush, [place] Tongue Recall Frequency: 6 mo NV: 6mrc, exam Hygienist: Joyce Frost RDH documented in this encounter Plan of Treatment Upcoming Encounters Date Type Department Care Team (Late st Contact Info) Description 02/21/2025 8:00 AM EDT Office Visit [facility] ADULT DENTAL [address] [place] [address] Joyce Frost Scheduled Orders Name Type Priority Associated Diagnoses Orde r Schedule PROPHYLAXIS - ADULT Dental Routine 1 Occ urrences starting 08/23/2024 PERIODIC ORAL EVALUATION - ESTABLISHED PATIENT Dental Routine 1 Occurren rasta starting 08/23/2024 documented as of this encounter Procedures Procedure Name Priority Date/Time Associated Diagnosis Comments PROPHYLAXIS - ADULT Routine 08/23/2024 8 :00 AM EST Dental plaque Dental calculus PERIODIC ORAL EVALUATION - ESTABLISHED PATIENT Routine 08/23/2024 8:00 AM EST ORAL HYGIENE INSTRUCTIONS Routine 08/23/2024 8:00 AM EST Dental plaque Dental calculus INTRAORAL - PERIAPICAL FIRST RADIOGRAPHIC IMAGE Routine 08/23/2024 8:00 AM EST INTRAORAL - PERIAPICAL EACH ADDITIONAL RADIOGRAPHIC IMAGE Routine 08/23/2024 8:00 AM EST INTRAORAL - PERIAPICAL EACH ADDITIONAL RADIOGRAPHIC IMAGE Routine 08/23/2024 8:00 AM EST CASE PRESENTATION, DETAILED AND EXTENSIVE TREATMENT PLANNING Routine 08/23/2024 8:00 AM EST BITEWINGS - 4 RADIOGRAPHIC IMAGES Routine 08/23/2024 8:00 AM EST documented in this encounter Visit Diagnoses Diagnosis Dental plaque- Primary Accretions on teeth Dental calculus Accretions on teeth documented in this encounter Additional Health Concerns Assessment Noted Time PHQ-9 Depression Total Score: 0 12/18/19 23 11:44 AM EDT documented as of this encounter Care Teams Rawhide Trimmer Relationship Specialty Start Date End Date Suzanne Arthur DO [address] [place] [address] PCP - General Family Medicine 03/27/15 documented as of this encounter
--- OUTSIDE RECORDS SUMMARY | 2024-09-16 10:03 | XMS_ITS | Encounter Summary ---
Author Organization [employer] Address [address] [facility] [address] [place] [address] Care Team Providers Care Grant Officer Name Role Phone Shameka Arthurfer Primary Care Provider + [phone] Encounter Details Date Type Department Care Team ([facility] st Contact Info) Description 11/11/2023 Orders Only [facility] [address] [place], [place] [id number] ProviderSiomara MD Social History Tobacco Use Types Packs/Day Years Used Date Smoking Tobacco: Never Smokeless Tobacco: Never Alcohol Use Standard Drinks/Week Comments Never 0 (1 standard drink = 0.6 oz pur e alcohol) Depression Answer Date Recorded Patient Health Questionnaire-9 Score 0 12/17/2022 Housing Stability Answer Date Recorded What is your housing situation today? I have garrettjony scott 05/18/[address] you [...] Description 02/21/2025 8:00 AM EDT Office Visit [facility] ADULT DENTAL [address] [place] [address] Joyce Frost documented as of this encounter Procedures Procedure Name Priority Date/Time Associated Diagnosis Comments HM COLONOSCOPY Routine 08/28/2015 11:31 AM EST documented in this encounter Results * Hm Colonoscopy (08/28/2015 11:31 AM EST) us Historical Provider HEALTH MAINTENANCE Final Result documented in this encounter Visit Diagnoses Not on filedocumented in this encounter Additional Health Concerns Assessment Noted Time PHQ-9 Depression Total Score: 0 12/18/19 23 11:44 AM EDT documented as of this encounter Care Teams Grant Officer Relationship Specialty Start Date End Date Suzanne Arthur DO [address] [place] [address] PCP - General Family Medicine 03/27/15 documented as of this encounter
--- OUTSIDE RECORDS SUMMARY | 2024-09-16 10:03 | XMS_ITS | Encounter Summary ---
Author Organization [employer] Address [address] [facility] [address] [place] [address] Care Team Providers Care Heel Wheeler Name Role Phone MarissaSuzanne greenfield Primary Care Provider [phone] Encounter Details Date Type Department Care Team (Latest Contact Info) Description 09/16/2024 Travel Social History Tobacco Use Types Packs/Day Years [...] Description 02/21/2025 8:00 AM EDT Office Visit [facility] ADULT DENTAL [address] [place] [address] Joyce Frost documented as of this encounter Visit Diagnoses Not on filedocumented in this encounter Additional Health Concerns Assessment Noted Time PHQ-9 Depression Total Score: 0 09/16/19 25 9:04 AM EST documented as of this encounter Care Teams Heel Wheeler Relationship Specialty Start Date End Date Suzanne Arthur DO [address] [place] [address] PCP - General Family Medicine 03/27/15 documented as of this encounter
--- OUTSIDE RECORDS SUMMARY | 2024-09-16 10:03 | XMS_ITS | Encounter Summary ---
Author Organization [employer] Address [address] [facility] [address] [place] [address] Care Team Providers Care Game Engineer Name Role Phone MarissaSuzanne greenfield DO Primary Care Provider [phone] Encounter Details Date Type Department Care Team (Latest Contact Info) Description 09/05/2024 Travel Social History Tobacco Use Types Packs/Day [...] Description 02/21/2025 8:00 AM EDT Office Visit [facility] ADULT DENT[facility] [address] [place] [address] Joyce Frost documented as of this encounter Visit Diagnoses Not on filedocumented in this encounter Additional Health Concerns Assessment Noted Time PHQ-9 Depression Total Score: 0 12/18/19 23 11:44 AM EDT documented as of this encounter Care Teams Game Engineer Relationship Specialty Start Date End Date Suzanne Arthur DO [address] [place] [address] PCP - General Family Medicine 03/27/15 documented as of this encounter
--- OUTSIDE RECORDS SUMMARY | 2024-09-16 10:03 | XMS_ITS | Encounter Summary ---
Author Organization [employer] Address [address] [facility] [address] [place] [address] Care Team Providers Care Billboard Erector Helper Name Role Phone MarissaSuzanne greenfield DO Primary Care Provider [phone] Encounter Details Date Type Department Care Team (Latest Contact Info) Description 08/29/2024 Travel Social History Tobacco Use Types Packs/Day [...] Description 02/21/2025 8:00 AM EDT Office Visit [facility] ADULT DENTAL [address] [place] [address] Joyce Frost documented as of this encounter Visit Diagnoses Not on filedocumented in this encounter Additional Health Concerns Assessment Noted Time PHQ-9 Depression Total Score: 0 12/18/19 23 11:44 AM EDT documented as of this encounter Care Teams Billboard Erector Helper Relationship Specialty Start Date End Date Suzanne Arthur DO [address] [place] [address] PCP - General Family Medicine 03/27/15 documented as of this encounter
[2024-09-16 11:13] LABS: Hematocrit 39.2 % (37.0-47.0); Hemoglobin 12.7 g/dl (12.0-16.0); Mean Corpuscular HGB Conc 32.4 g/dl (31.0-35.0); Mean Corpuscular Hemoglobin 29.9 pg (27.0-33.0); Mean Corpuscular Volume 92.2 fL (80.0-98.0); Mean Platelet Volume 10.5 fL (9.4-12.3); Platelet Count 234 X10*3/uL (160-400); Red Blood Count 4.25 X10*6/uL (4.20-5.50); Red Cell Distribution Width 13.5 % (11.0-16.0); White Blood Count 6.9 X10*3/uL (4.8-10.8)
[2024-09-16 11:22] LABS: Estimated Average Glucose 117 mg/dL; Hemoglobin A1C 131.0207 umol/L; Hemoglobin A1c % 5.7 % (<6.0); Total Hemoglobin (HGBA1C) 3347.1683 umol/L
[2024-09-16 11:55] LABS: Alanine Aminotransferase 17 U/L (0-31); Albumin Level 3.9 g/dL (3.5-5.0); Alkaline Phosphatase 90 U/L (39-117); Anion Gap 9 (12-20); Aspartate Amino Transferase 20 U/L (5-31); Bilirubin Direct 0.1 mg/dL (0.0-0.5); Bilirubin Total 0.4 mg/dL (0.0-1.0); Blood Urea Nitrogen 20 mg/dL (9-16); Calcium 9.5 mg/dL (8.4-10.2); Carbon Dioxide 30 mmol/L (22-29); Chloride 103 mmol/L (96-108); Cholesterol 180 mg/dL (<200); Estimated Glomerular Filt Rate > 60; Glucose Random 96 mg/dL (60-115); HDL Cholesterol 57 mg/dL (>40); LDL Cholesterol Calculated 107 mg/dL (<100); Potassium 3.5 mmol/L (3.3-5.1); Sodium 138 mmol/L (135-145); Total Protein 7.8 g/dL (6.5-8.0); Triglycerides 82 mg/dL (<150)
[2024-09-16 12:19] LABS: Free T4 (Free Thyroxine) 1.01 ng/dL (0.71-1.85); Thyroid Stimulating Hormone 2.82 uIU/mL (0.32-4.0); Vitamin D 25-OH Total 68.7 ng/mL (>30)
== END 2024-09-16 09:35 | disposition home or self-care (01) ==
LOC: HO.HHCL 09:34
PROVIDERS: Visit Provider Family Medicine
DX: I10 Essential (primary) hypertension (principal); R73.03 Prediabetes
CPT/HCPCS: 36415; 80048; 80061; 80076; 82306; 83036; 84439; 84443; 85027

== ENCOUNTER 2024-09-16 11:55 | Outpatient (REF) | payer MEDICAID, SELFPAY ==
--- OUTSIDE RECORDS SUMMARY | 2024-09-16 12:41 | XMS_ITS | Encounter Summary ---
Author Organization [employer] Address [address] [facility] [address] [place] [address] Care Team Providers Care Handbag Finisher Name Role Phone Suzanne Arthur DO Primary Care Provider [phone] Reason for Visit * Reason Onset Date Comments Reschedule Appt 09/05/2024 Provider out 09/05. Encounter Details Date Type Department Care Team ([facility] st Contact Info) Description 09/05/2024 Telephone [facility] MEDICINE [address] [place] [address] Suzanne Arthur DO [address] [place], [place] [phone] Reschedule Appt (Provider out 09/05/24.) Social History [...] Description 02/21/2025 8:00 AM EDT Office Visit [facility] ADULT DENTAL [address] [place] [address] Joyce Frost documented as of this encounter Visit Diagnoses Not on filedocumented in this encounter Additional Health Concerns Assessment Noted Time PHQ-9 Depression Total Score: 0 12/18/19 23 11:44 AM EDT documented as of this encounter Care Teams Handbag Finisher Relationship Specialty Start Date End Date Suzanne Arthur DO [address] [place] [address] PCP - General Family Medicine 03/27/15 documented as of this encounter
--- OUTSIDE RECORDS SUMMARY | 2024-09-16 12:41 | XMS_ITS | Clinical Summary ---
Author Organization [employer] Address [address] [facility] 7t [place] [address] Care Team Providers Care Materials Buyer Name Role Phone CarlosSuzanne galvan Primary Care [...] chart -s/p optho eval APR 2023 at [facility] for 2 year f/u Assessment & [...] Description 09/16/2024 9:00 AM EST Office Visit [facility] [address] [place] [phone] Suzanne Arthur DO Essential hypertension (Primary Dx); Prediabetes; Pain of right heel; Healthcare maintenance; Encounter for immunization 09/16/2024 Travel 09/05/2024 Telephone [facility] [address] [place] [phone] Suzanne Arthur DO Reschedule Appt (Provider out 09/05/24.) 09/05/2024 Travel 08/29/2024 Travel 08/23/2024 8:00 AM EST Office Visit [facility] ADULT [facility] [address] [place] [address] SantoshJoyce Dental plaque (Primary Dx); Dental calculus 08/16/2024 Travel 08/08/2024 Travel 08/05/[address] [address] Rosie Zapata [place] Recall Follow Up Appt. 08/05/2024 Travel 07/11/2024 Refill [facility] [address] [place] [address] Suzanne Arthur DO Essential hypertension from Last [...] Description 02/21/2025 8:00 AM EDT Office Visit [facility] AD[facility] [address] [place] [address] Joyce Frost Health Maintenance Due Date Last Done Comments CT Colonography 1960 FIT DNA/Cologuard 1960 FIT 1960 FOBT 1960 HIV Screening 1960 Sigmoidoscopy 1960 Hepatitis C Screening 1978 COVID-19 Vaccine ( season) 2024 08/30/2021 Dental X-Ray: Full Mouth 08/21/2024 08/20/2021 Dental Oral Exam 02/21/2025 08/23/2024, 05/25/2023 Dental Prophylaxis 02/21/2025 08/23/2024, 0 01/21/2024, 05/25/2023, Additional history exists DTaP/Tdap/Td Vaccines (2 - Td or Tdap) 04/10/2025 04/10/2015 Dental X-Ray: Bitewings 08/24/2025 08/23/19 25, 05/25/2023, 08/20/2021 Colonoscopy 08/28/2025 08/28/2015 Colorectal Cancer Screening 08/28/2025 Alcohol/Substance Use Screening 09/16/2025 09/16/2024 Depression Screening 09/16/2025 09/16/2024, 09/16/19 Diabetes: Hemoglobin A1C 09/16/2025 025, 2023, 02/17/2022, Additional history exists SDOH Screening 09/16/2025 09/16/2024 Tobacco Screening 09/16/2025 09/16/2024 Mammogram 12/16/2025 12/17/2023, 12/01, 12/15/2022, Additional history exists Lipid Panel 09/16/2029 09/16/2024, 11/0 04/2023, 02/17/2022, Additional history exists Cervical Cancer Screening Discontinued HPV/Cotest Discontinued 07/30/2018 [...] Procedure Name Priority Date/Time Associated Diagnosis Comments CBC Routine 09/16/2024 9:37 AM EST Essential hypertension Prediabetes BASIC METABOLIC PANEL Routine 09/16/2024 9:37 AM EST Essential hypertension Prediabetes HEMOGLOBIN A1C Routine 09/16/2024 9:37 AM EST Essential hypertension Prediabetes HEPATIC FUNCTION PANEL Routine 9:37 AM EST Essential hypertension Prediabetes TSH Routine 09/16/2024 9:37 AM EST Essential hypertension Prediabetes LIPID PANEL, STANDARD Routine 09/16/2024 9:37 AM EST Essential hypertension Prediabetes VITAMIN D,25-OH,TOTAL,IA Routine 09/16/2024 9:37 AM EST Essential hypertension Prediabetes T4, FREE Routine 09/16/2024 9:37 AM EST Essential hypertension Prediabetes PERIODIC ORAL EVALUATION - ESTABLISHED PATIENT Routine [...] TOMOSYNTHESIS BILATERAL Routine 12/17/2023 12:52 PM EDT INTRAORAL - COMPLETE SERIES OF RADIOGRAPHIC IMAGES Routine 08/20/2021 12:00 AM EST ZZZ HISTORICAL HPV MRNA E6/E7 Routine 07/30/2018 11:20 AM EST HM COLONOSCOPY Routine 08/28/2015 11:31 AM EST from Last 3 Months or Most Recently Relevant to Health Maintenance Results * Vitamin D, 25-Hydroxy, Total, Immunoassay (09/16/2024 9:37 AM EST) Vitamin D 25-OH Total 68.7 >30 ng/mL [facility] Comment:Health Based Referen ce Values*< 20 ng/mL Rgrfwpsva16-41 ng/mL Insufficient> 30 ng/mL Sufficient*Prasanna TELLEZ. N Engl J Med. 2007;357:266-280Care must be taken in interpreting Vitamin D results fromdifferent laboratories and methodologies. Published datademonstrated that results from patients undergoinghemodialysis may show a negative bias when tested withvarious automated 25-OH vitamin D assays when compared toLC-MS/MS.When testing samples from patients whose predominant form ofVitamin D is Vitamin D2, such as patients receiving VitaminD2 supplementation, results that are subtherapeutic shouldbe confirmed with another method such as LC-MS/MS. Blood Venous blood specimen / Unknown 09/16/2024 9:37 AM EST 09/16/2024 11:02 AM EST us Suzanne Arthur DO LAB BLOOD ORDERABLES Final R esult [facility] [address] [place], [place] [phone] * CBC (09/16/2024 9:37 AM EST) White Blood Count 6.9 4.8 - 10.8 X10*3/uL [facility] Red Blood Count 4.25 4.20 - 5.50 X10*6/uL [facility] Hemoglobin 12.7 12.0 - 16.0 g/dl [facility] Hematocrit 39.2 37.0 - 47.0 % [facility] Mean Corpuscular Volume 92.2 80.0 - 98.0 fL [facility] Mean Corpuscular Hemoglobin 29.9 27.0 - 33.0 pg [facility] Mean Corpuscular HGB Conc 32.4 31.0 - 35.0 g/dl [facility] Red Cell Distribution Width 13.5 11.0 - 16.0 % [facility] Platelet Count 234 160 - 400 X10*3/uL [facility] Mean Platelet Volume 10.5 9.4 - 12.3 fL [facility] NRBC Pct Auto 0.0 0.0 - 0.2 /100WBC [facility] NRBC Abs Auto 0.000 0.0 - 0.012 X10*3/uL [facility] Blood Venous blood specimen / Unknown 09/16/2024 9:37 AM EST 09/16/2024 11:02 AM EST us Suzanne Arthur DO LAB BLOOD ORDERABLES Final R esult [facility] [address] [place] [phone] * TSH (09/16/2024 9:37 AM EST) Thyroid Stimulating Hormone 2.82 0.32 - 4.0 uIU/mL [facility] Comment:Note: A sustained TS H level above 2.5 uIU/mL may warrant further investigation. TSH 3rd Generation ([facility]) Blood Venous blood specimen / Unknown 09/16/2024 9:37 AM EST 09/16/2024 11:02 AM EST us Suzanne Arthur DO LAB BLOOD ORDERABLES Final R esult Performing Organization Address City/[facility]/ZIP Co de Phone Number [facility] [address] [place] [phone] * T4, Free (09/16/2024 9:37 AM EST) Pathologist [facility] Free T4 (Free Thyroxine) 1.01 0.71 - 1.85 ng/dL [facility] Blood Venous blood specimen / Unknown 09/16/2024 9:37 AM EST 09/16/2024 11:02 AM EST us Suzanne Arthur DO LAB BLOOD ORDERABLES Final R esult [facility] [address] [place] [phone] * Hemoglobin A1c (09/16/2024 9:37 AM EST) Hemoglobin A1c 5.7 <6.0 % [facility] Comment:Hemoglobin A1C Refer ence Range Adults: 4.8 - 6.0 % Non diabetic: < 6.0 % Goal: < 7.0 %Additional Action Suggested: > 8.0 %Note: Hemoglobin A1c results are invalid for patients with abnormal amounts of HbF. Blood transfusions may impact the HbA1c concentration in the patient sample. Estimated Average Glucose 117 mg/dL [facility] Comment:eAG = Estimated ave rage glucose which is %A1C expressed asaverage glucose, using the formula of the [id number]-[id number] Glucose study (ADAG), Diabetes Care, Vol.31,#8,Mar. 2007 Blood Venous blood specimen / Unknown 09/16/2024 9:37 AM EST 09/16/2024 11:02 AM EST Suzanne Arthur Lemko LAB BLOOD ORDERABLES Final R esult Performing Organization Address [facility] Co de Phone Number [facility] [address] [place] [phone] * Hepatic Function Panel (09/16/2024 9:37 AM EST) Bilirubin, Total 0.4 0.0 - 1.0 mg/dL [facility] Bilirubin, Direct 0.1 0.0 - 0.5 mg/dL [facility] Aspartate Amino Transferase 20 5 - 31 U/L [facility] Alanine Aminotransferase 17 0 - 31 U/L [facility] Total Protein 7.8 6.5 - 8.0 g/dL [facility] Albumin Level 3.9 3.5 - 5.0 g/dL [facility] Alkaline Phosphatase 90 39 - 117 U/L [facility] Blood Venous blood specimen / Unknown 09/16/2024 9:37 AM EST 09/16/2024 11:02 AM EST Suzanne Arthur DO LAB BLOOD ORDERABLES Final R esult Performing Organization Address [facility] Co de Phone Number [facility] [address] [place] [phone] * (ABNORMAL) Lipid Panel, Standard (09/16/2024 9:37 AM EST) Triglycerides 82 <150 mg/dL [facility] Comment:Desirable Triglyceri de: less than 150 mg/dLBorderline High Triglyceride 150-199 mg/dLHigh Triglyceride: 200-499 mg/dLVery High Triglyceride: greater than or equal to 5OO mg/dL Cholesterol 180 <200 mg/dL [facility] Comment:Desirable Cholestero l: less than 200 mg/dLBorderline High Cholesterol: 200-239 mg/dLHigh Cholesterol: greater than 239 mg/dL LDL Cholesterol Calculated 107(H) <100 mg/dL [facility] Comment:Desirable LDL: less than 100 mg/dLNear Optimal/Above Optimal LDL: 110- 129 mg/dLBorderline High LDL: 130-159 mg/dLHigh LDL: 160-189 mg/dLVery High LDL: greater than or equal to 190 mg/dL HDL Cholesterol 57 >40 mg/dL [facility] Comment:Desirable HDL: great er than 40 mg/dL Note: This HDL assay may give artificially low results in patients with liver disease. Blood Venous blood specimen / Unknown 09/16/2024 9:37 AM EST 09/16/2024 11:02 AM EST us Suzanne Arthur DO LAB BLOOD ORDERABLES Final R esult [facility] [address] [place] [phone] * (ABNORMAL) Basic Metabolic Panel (09/16/2024 9:37 AM EST) Sodium 138 135 - 145 mmol/L [facility] Potassium 3.5 3.3 - 5.1 mmol/L [facility] Chloride 103 96 - 108 mmol/L [facility] Carbon Dioxide 30(H) 22 - 29 mmol/L [facility] Anion Gap 9(L) 12 - 20 [facility] Urea Nitrogen (BUN) 20(H) 9 - 16 mg/dL [facility] Creatinine, Serum 0.82 0.5 - 1.4 mg/dL [facility] Estimated Glomerular Filt Rate >60 [facility] Comment:Chronic Kidney Disea se: Estimated GFR < 60 mL/min/1.01j2Uaxkjs Kidney Disease: Estimated GFR < 15 mL/min/1.73m2 Glucose 96 60 - 115 mg/dL [facility] Calcium 9.5 8.4 - 10.2 mg/dL [facility] Blood Venous blood specimen / Unknown 09/16/2024 9:37 AM EST 09/16/2024 11:02 AM EST us Suzanne Sandhya DO LAB BLOOD ORDERABLES Final R esult [facility] [address] [place] [phone] [phone] * BI Mammogram Screening Tomosynthesis Bilateral (12/17/2023 12:52 PM EDT) Anatomical Region Laterality Modality Breast Bilateral Mammography 12/17/2023 12:5 2 PM EDT Narrative 01/18/2024 7:07 AM EDT ? [facility] ? [address] ?[place] [address] ? Mammography Report ? Signed ? Patient: Tequila Roa ?MR#: ?? [id number] ? : 1960 ?Acct:[id number] ? Age/Sex: 63 / F ?ADM Date: 05/16/24 ? Loc: HO.MAMMO ? Attending Dr: Suzanne Arthur DO ? Ordering Physician: Suzanne Arthur DO ?Results: 1N ?? egative ? Date of Service: 12/17/23 ?Follow Up: 1 Year From Orig ?? inal Mammogram ? Procedure(s): MM tomosynthesis screening BI ?? Accession Number(s): [id number] ? cc: Suzanne Arthur DO ? EXAMINATION: ?? MM SCREENING DIGITAL BREAST TOMOSYNTHESIS, BILATERAL ? CLINICAL INFORMATION: ? Screening. Asymptomatic. ? COMPARISON: ?? Mammography: This study is compared with prior exams dating back to ?? 2017. ? TECHNIQUE: ?? Digital breast tomosynthesis is [...] 0703 ? DD/ 1252 ? TD/TT: ? Specification Consultant: ? Procedure Note Noris, Ramana - 01/18/2024 [facility] [address] [place] [address] [place] [address] Mammography Report Signed Patient: Tequila Roa DMR#: [id number] : 1960Acct:[id number] Age/Sex: 63 / FADM Date: 12/17/23 Loc: HO.MAMMO Attending Dr: Suzanne Arthur DO Ordering Physician: Suzanne Arthurults: 1N egative Date of Service: 12/17/23Follow Up: 1 Year From Orig inal Mammogram Procedure(s): MM tomosynthesis screening BI Accession Number(s): [id number] cc: Suzanne Arthur DO EXAMINATION: MM SCREENING [...] in OV> 01/18/24 0703 DD/ 1252 TD/TT: Specification Consultant: Suzanne Arthur DO [facility] BI PROCEDURES Final Resu lt * HPV mRNA E6/E7 (07/30/2018 11:20 AM EST) HPV mRNA E6/E7 Not Detected NOT DETECTED [facility] Comment: This test was performed using the APTIMA(R) HPV Assay ([employer] This assay detects E6/E7 viral messenger RNA (mRNA) from 14 high-risk HPV types (16,18,31,33,35,39,45,51, 52,56,58,59,66,68). For additional information please refer to: http://education.[employer]/faq/MUI257b9 (This link is being provided for informational/ educational purposes only.) The analytical performance characteristics of this assay have been determined by [employer] [place], [place]. The modifications have not been cleared or approved by the FDA. This assay has been validated pursuant to the CLIA regulations and is used for clinical purposes. Test Performed by [facility], [email or web address] [facility], [address] [place] [address] Phill Walden M.D., Ph.D., Director of Laboratories , CLIA [id number] Please note: ??Effective 04/14/2016, HPV testing will be performed using [employer] APTIMA test which targets mRNA. Detecting mRNA instead of DNA, as in older methods, offers significant improvements in specificity. 07/30/2018 11:2 0 AM EST Suzanne Arthur DO HISTORICAL/NON ORDERABLE LAB S Final Result [facility] [address] * Hm Colonoscopy (08/28/2015 11:31 AM EST) Historical Provider HEALTH MAINTENANCE Final Result from Last 3 Months or Most Recently Relevant to Health Maintenance Insurance [facility] FULL [facility] C3 [facility] MEDICAID STAND ADULT Care Teams Materials Buyer Relationship Specialty Start Date End Date Suzanne Arthur DO [address] [place] [address] PCP - General Family Medicine 03/27/15
--- OUTSIDE RECORDS SUMMARY | 2024-09-16 12:41 | XMS_ITS | Encounter Summary ---
Author Organization [employer] Address [address] [facility] 7t [place] [address] Care Team Providers Care Ruling Machine Set Up Operator Name Role Phone MarissaSuzanne greenfield DO Primary Care Provider [phone] Encounter Details Date Type Department Care Team [...] Description 02/21/2025 8:00 AM EDT Office Visit [facility] ADULT D[facility] [address] [place] [address] Joyce Frost documented as of this encounter Visit Diagnoses Not on filedocumented in this encounter Additional Health Concerns Assessment Noted Time PHQ-9 Depression Total Score: 0 12/18/19 23 11:44 AM EDT documented as of this encounter Care Teams Ruling Machine Set Up Operator Relationship Specialty Start Date End Date Suzanne Arthur DO [address] [place] [address] PCP - General Family Medicine 03/27/15 documented as of this encounter
--- OUTSIDE RECORDS SUMMARY | 2024-09-16 12:41 | XMS_ITS | Encounter Summary ---
Author Organization [employer] Address [address] [facility] 7t [place] [address] Care Team Providers Care Wash Oil Pump Operator Helper Name Role Phone SandhyaSuzanne Primary Care Provider [phone] Reason for Visit * Reason Comments Routine Cleaning Dental Exam Encounter Details Date Type Department Care Team ([facility] st Contact Info) Description 08/23/2024 8:00 AM EST Office Visit [facility] ADULT DENTAL [address] [place] [address] Joyce Frost Dental plaque (Primary Dx); Dental [...] RADIOGRAPHIC IMAGE (Completed) Service provider: Joyce Frost B[place] provider: Caden Elizalde DDS [id number] - INTRAORAL - PERIAPICAL EACH ADDITIONAL RADIOGRAPHIC IMAGE (Completed) Service provider: Joyce Altman provider: Caden Elizalde DDS [id number] - PERIODIC ORAL EVALUATION - ESTABLISHED PATIENT Patient ID: Tequila Yin is a 64 y.o. female. Time Out: Timeout Date: 08/23/24, Timeout Time: 0804 (prophy and exam adult dental) Location: [facility] Tooth: Maxilla and Mandible Procedure: Exam, X-rays, and Prophylaxis Verified the above with patient, assistant manager of operations, and provider. Confirmed via patient's chart, intraorally and by radiographs. Direct Customer Service Representative: not applicable Chief Complaint Patient presents with [...] Cancer Risk: Low Risk Oral Hygiene Instructions: [place] two times daily, modified leonard technique, Floss daily, Electric toothbrush, Soft bristle toothbrush, [place] Tongue Caries Risk Assessment: Low- no risk factor Assessment/Plan BRENNAN X Ray Prophy Recall Patient tolerated procedure well, all questions answered and expressed understanding. Dismissed in good condition. NV: 6 mos recall Deaf Teacher: Joyce Frost Dentist: Caden Elizalde DDS * Joyce Frost - 08/23/2024 8:00 AM EST Patient ID: Tequila Yin is a 64 y.o. female. Time Out: Timeout Date: 08/23/24, Timeout Time: 0804 (prophy and exam adult dental) Location: [facility] Tooth: Maxilla and Mandible Procedure: Exam, X-rays, and Prophylaxis Verified the above with patient, assistant manager of operations, and provider. Confirmed via patient's chart, intraorally and by radiographs. Direct Customer Service Representative: not applicable Medical Hx: Vitals: Blood pressure [...] patient including brushing technique and flossing. Recommendations: [place] two times daily, modified leonard technique, Floss daily, Electric toothbrush, Soft bristle toothbrush, [place] Tongue Recall Frequency: 6 mo NV: 6mrc, exam Hygienist: Joyce Frost RDH documented in this encounter Plan of Treatment Upcoming Encounters Date Type Department Care Team (Late st Contact Info) Description 02/21/2025 8:00 AM EDT Office Visit [facility] ADULT DENTAL [address] [place] [address] Joyce Frost Scheduled Orders Name Type Priority [...] documented as of this encounter Care Teams Wash Oil Pump Operator Helper Relationship Specialty Start Date End Date Suzanne Arthur DO [address] [place] [address] PCP - General Family Medicine 03/27/15 documented as of this encounter
--- OUTSIDE RECORDS SUMMARY | 2024-09-16 12:41 | XMS_ITS | Encounter Summary ---
Author Organization [employer] Address [address] [facility] 7t [place] [address] Care Team Providers Care Accounting Practice Manager Name Role Phone MarissaSuzanne greenfield DO Primary Care Provider [phone] Encounter Details Date Type Department Care Team [...] 8:00 AM EDT Office Visit [facility] ADULT DENTAL [address] [place] [address] Joyce Frost documented as of this encounter Visit Diagnoses Not on filedocumented in this encounter Additional Health Concerns Assessment Noted Time PHQ-9 Depression Total Score: 0 12/18/19 23 11:44 AM EDT documented as of this encounter Care Teams Accounting Practice Manager Relationship Specialty Start Date End Date Suzanne Arthur DO [address] [place] [address] PCP - General Family Medicine 03/27/15 documented as of this encounter
--- OUTSIDE RECORDS SUMMARY | 2024-09-16 12:41 | XMS_ITS | Encounter Summary ---
Author Organization [employer] Address [address] [facility] 7t [place] [address] Care Team Providers Care Water Technician Name Role Phone Sandhya Suzanne Primary Care Provider [phone] Reason for Visit * Reason Onset Date Comments referral 06/05/2023 Encounter Details Date Type Department Care Team ([facility] st Contact Info) Description 06/05/[address] [facility] ADULT DENTAL [address] [place] [address] Caden Elizalde DDS [address] [place] [address] referral Social History Tobacco Use Types Packs/Day [...] Nothing scanned in. Their fax number is [phone]. Phone number to office if need to reach is [phone]. documented in this encounter Plan of Treatment Upcoming Encounters Date Type Department Care Team (Late st Contact Info) Description 02/21/2025 8:00 AM EDT Office Visit [facility] ADULT DENTAL [address] [place] [address] Joyce Frost documented as of this encounter Visit Diagnoses Not on filedocumented in this encounter Additional Health Concerns Assessment Noted Time PHQ-9 Depression Total Score: 0 12/18/19 23 11:44 AM EDT documented as of this encounter Care Teams Water Technician Relationship Specialty Start Date End Date Suzanne Arthur DO [address] [place] [address] PCP - General Family Medicine 03/27/15 documented as of this encounter
--- OUTSIDE RECORDS SUMMARY | 2024-09-16 12:41 | XMS_ITS | Encounter Summary ---
Author Organization [employer] Address [address] [facility] 7t [place] [address] Care Team Providers Care Dental Financial Coordinator Name Role Phone Shameka Arthurfer Primary Care Provider + [phone] Encounter Details Date Type Department Care Team ([facility] st Contact Info) Description 11/11/2023 Orders Only [facility] MEDICINE [address] [place], [place] [phone] ProviderSiomara MD Social History Tobacco Use Types [...] 8:00 AM EDT Office Visit [facility] ADULT DENTAL [address] [place] [address] Joyce Frost documented as of this encounter [...] documented as of this encounter Care Teams Dental Financial Coordinator Relationship Specialty Start Date End Date Suzanne Arthur DO [address] [place] [address] PCP - General Family Medicine 03/27/15 documented as of this encounter
--- OUTSIDE RECORDS SUMMARY | 2024-09-16 12:41 | XMS_ITS | Encounter Summary ---
Author Organization [employer] Address [address] [facility] [address]t [place] [address] Care Team Providers Care Occupational Therapist'S Assistant Name Role Phone MarissaSuzanne greenfield Primary Care Provider [phone] Encounter Details Date Type Department Care Team [...] [facility] ADULT DENTAL [address] [place] [address] Joyce Frost documented as of this encounter Visit Diagnoses Not on filedocumented in this encounter Additional Health Concerns Assessment Noted Time PHQ-9 Depression Total Score: 0 09/16/19 25 9:04 AM EST documented as of this encounter Care Teams Occupational Therapist'S Assistant Relationship Specialty Start Date End Date Suzanne Arthur DO [address] [place] [address] PCP - General Family Medicine 03/27/15 documented as of this encounter
--- OUTSIDE RECORDS SUMMARY | 2024-09-16 12:41 | XMS_ITS | Encounter Summary ---
Author Organization [employer] Address [address] [facility] [address] [place] [address] Care Team Providers Care Power Electronics Engineer Name Role Phone Suzanne Arthur DO Primary Care Provider +1- [phone] Reason for Visit * Reason Onset Date Comments Med Refill 12/03/2022 Encounter Details Date Type Department Care Team ([facility] st Contact Info) Description 12/03/2022 Telephone [facility] MED[facility] [address] [place] [address] Suzanne Arthur DO [address] [place] [address] Med Refill Social History Tobacco Use Types [...] 10:44 AM EDT Medications were sent to [facility] on 08/07/22 90 day supply with 1 refill. * Telephone Encounter - Willy Woodruff - 12/03/2022 10:26 AM EDT Tc from pt requesting med refill hydroCHLOROthiazide (HYDRODiuril) 25 MG tablet enalapril (Vasotec) 20 MG tablet documented in this encounter Plan of Treatment Upcoming Encounters Date Type Department Care Team (Late st Contact Info) Description 02/21/2025 8:00 AM EDT Office Visit [facility] ADULT DENTAL [address] [place] [address] Joyce Frost documented as of this encounter Visit Diagnoses Not on filedocumented in this encounter Care Teams Power Electronics Engineer Relationship Specialty Start Date End Date Suzanne Arthur DO [address] [place] [address] PCP - General Family Medicine 03/27/15 documented as of this encounter
--- OUTSIDE RECORDS SUMMARY | 2024-09-16 12:41 | XMS_ITS | Encounter Summary ---
Author Organization [employer] [facility] Address [address] [place] [address] 7t [place] [address] Care Team Providers Care Pellet Mill Operator Name Role Phone Suzanne Arthur DO Primary Care Provider Encounter Details Date Type Department Care Team (Latest Contact Info) Description 08/20/2021 Abstract [facility] CONVERSIONS Dental, Provider, DDS Social History Tobacco [...] Description 02/21/2025 8:00 AM EDT Office Visit [facility] ADULT DENTAL [address] [place] [address] Joyce Frost documented as of this encounter Visit Diagnoses Not on filedocumented in this encounter Care Teams Pellet Mill Operator Relationship Specialty Start Date End Date Suzanne Arthur DO [address] [place] [address] PCP - General Family Medicine 03/27/15 documented as of this encounter
--- OUTSIDE RECORDS SUMMARY | 2024-09-16 12:41 | XMS_ITS | Encounter Summary ---
Author Organization [employer] Address [address] [facility] 7t [place] [address] Care Team Providers Care Heat Seal Operator Name Role Phone Suzanne Arthur DO Primary Care Provider +1- [phone] Encounter Details Date Type Department Care Team ([facility] st Contact Info) Description 09/16/2024 9:00 AM EST Office Visit [facility] MEDICINE [address] [place], [place] [phone] Suzanne Arthur DO [address] [place] [address] Essential hypertension (Primary Dx); Prediabetes; Pain of [...] 9:02 AM EST documented in this encounter Progress Notes * Suzanne Arthur, DO - 09/16/2024 9:00 AM EST SUBJECTIVE Tequila Yin is a 64 y.o. female who was last seen my me December 2023 presents for Follow-up. She has no concerns. She is taking her BP meds every day. She went to pharmacy and got a number of vaccines. She says that she had side effects with her 2nd dose of the shingrix. Review of Systems Constitutional: Negative for activity change, appetite change, chills, fever and unexpected weight change. Eyes: Negative for visual disturbance. Respiratory: Negative for cough and shortness of breath. Cardiovascular: Negative for chest pain, palpitations and leg swelling. Gastrointestinal: Negative for abdominal pain, diarrhea, nausea and vomiting. Neurological: Negative for weakness and headaches. Patient Active Problem List Diagnosis Essential hypertension BMI 30.0-30.9,adult Vitamin D deficiency Periodontal disease Dental calculus Generalized gingival recession, moderate Healthcare maintenance Tuberculosis screening Prediabetes Pain of right heel No Known Allergies OBJECTIVE Visit Vitals BP 138/70 (BP Location: Left arm, Patient Position: Sitting, BP Cuff Size: Adult) Pulse 83 Temp 96.6 ??F (35.9 ??C) (Oral) Resp 21 Ht 4' 11 (1.499 m) Wt 150 lb (68 kg) SpO2 99% BMI 30.30 kg/m?? OB Status Postmenopausal Smoking Status Never BSA 1.68 m?? Physical Exam Constitutional: General: She is not in acute distress. Appearance: Normal appearance. Cardiovascular: Rate and Rhythm: Normal rate and regular rhythm. Heart sounds: Normal heart sounds. No murmur heard. Pulmonary: Effort: Pulmonary effort is normal. Breath sounds: Normal breath sounds. No wheezing or rhonchi. Neurological: General: No focal deficit present. Mental Status: She is alert and oriented to person, place, and time. Cranial Nerves: No cranial nerve deficit. Motor: No weakness. Gait: Gait normal. Psychiatric: Mood and Affect: Mood normal. Thought Content: Thought content normal. Assessment/Plan Diagnoses and all orders for this visit: Essential hypertension BP controlled -cont enalapril and HCTZ daily -Cr/GFR and urine microalbumin wnl JUN 2023, repeat prior to next visit -there is nml screening EKG in chart -s/p optho eval APR 2023 at [facility] for 2 year f/u Prediabetes A1c 5.09 JUN 2023 -repeat A1c today -encouraged dietary changes for prevention of DM Healthcare maintenance -s/p flu vaccine MAY 2024 -she declines COVID vaccine -s/p Tdap APR 2015 -PCV20 today -s/p RSV vaccine May 2024 -s/p shingrix vaccine Aug 2024 -T-spot negative Oct 2023 -mammo BIRADS 02 DEC 2023 -s/p hysterectomy 2/2 fibroids with no h/o abnml pap smears per pt, pap wnl/HPV negative JUL 2018, no need for further pap screening -screening colonoscopy wnl AUG 2015 -A1c 5.7, LDL 110 JUN 2023 -STI/HIV screen negative APR 2019 --Follow-up with me in 6 mos or sooner prn-- Current Outpatient Medications: cholecalciferol (Vitamin D-3) 50 MCG (2000 UT) tablet, TAKE 1 TABLET BY MOUTH DAILY, Disp: 90 tablet, Rfl: 3 Diclofenac Sodium 1 % gel, Apply 2 g topically if needed in the morning, at noon, in the evening, and at bedtime (pain)., Disp: 150 g, Rfl: 3 enalapril (Vasotec) 20 MG tablet, TAKE 1 TABLET BY MOUTH DAILY, Disp: 90 tablet, Rfl: 1 hydroCHLOROthiazide (HYDRODiuril) 25 MG tablet, Take 1 tablet by mouth every day, Disp: 90 tablet, Rfl: 1 documented in this encounter Plan of Treatment Upcoming Encounters Date Type Department Care Team (Late st Contact Info) Description 02/21/2025 8:00 AM EDT Office Visit [facility] ADULT DENTAL [address] [place] [address] Joyce Frost Scheduled Orders Name Type Priority Associated Diagnoses Orde r Schedule Albumin, Random Urine W/Creatinine Lab Routine Essential hypertension Prediabetes Expected: 09/16/2024 (Approximate), Expires: 09/16/2025 documented as of this encounter Procedures Procedure Name Priority Date/Time Associated Diagnosis Comments VITAMIN D,25-OH,TOTAL,IA Routine 09/16/2024 9:37 AM EST Essential hypertension Prediabetes CBC Routine 09/16/2024 9:37 AM EST Essential hypertension Prediabetes TSH Routine 09/16/2024 9:37 AM EST Essential hypertension Prediabetes T4, FREE Routine 09/16/2024 9:37 AM EST Essential hypertension Prediabetes HEMOGLOBIN A1C Routine 09/16/2024 9:37 AM EST Essential hypertension Prediabetes HEPATIC FUNCTION PANEL Routine 09/16/2024 9:37 AM EST Essential hypertension Prediabetes LIPID PANEL, STANDARD Routine 09/16/2024 9:37 AM EST Essential hypertension Prediabetes BASIC METABOLIC PANEL Routine 09/16/2024 9:37 AM EST Essential hypertension Prediabetes documented in this encounter Results * CBC (09/16/2024 9:37 AM EST) White Blood Count 6.9 4.8 - 10.8 X10*3/uL [facility] Red Blood Count 4.25 4.20 - 5.50 X10*6/uL [facility] Hemoglobin 12.7 12.0 - 16.0 g/dl [facility] Hematocrit 39.2 37.0 - 47.0 % [facility] Mean Corpuscular Volume 92.2 80.0 - 98.0 fL [facility] Mean Corpuscular Hemoglobin 29.9 27.0 - 33.0 pg [facility] Mean Corpuscular HGB Conc 32.4 31.0 - 35.0 g/dl [facility] Red Cell Distribution Width 13.5 11.0 - 16.0 % [facility] Platelet Count 234 160 - 400 X10*3/uL [facility] Mean Platelet Volume 10.5 9.4 - 12.3 fL [facility] NRBC Pct Auto 0.0 0.0 - 0.2 /100WBC [facility] NRBC Abs Auto 0.000 0.0 - 0.012 X10*3/uL [facility] Blood Venous blood specimen / Unknown 09/16/2024 9:37 AM EST 09/16/2024 11:02 AM EST us Suzanne Arthur DO LAB BLOOD ORDERABLES Final R esult [facility] [address] [place] [phone] * (ABNORMAL) Basic Metabolic Panel (09/16/2024 9:37 AM EST) Sodium 138 135 - 145 mmol/L [facility] Potassium 3.5 3.3 - 5.1 mmol/L [facility] Chloride 103 96 - 108 mmol/L [facility] Carbon Dioxide 30(H) 22 - 29 mmol/L [facility] Anion Gap 9(L) 12 - 20 [facility] Urea Nitrogen (BUN) 20(H) 9 - 16 mg/dL [facility] Creatinine, Serum 0.82 0.5 - 1.4 mg/dL [facility] Estimated Glomerular Filt Rate >60 [facility] Comment:Chronic Kidney Disea se: Estimated GFR < 60 mL/min/1.27v5Obzwmf Kidney Disease: Estimated GFR < 15 mL/min/1.73m2 Glucose 96 60 - 115 mg/dL [facility] Calcium 9.5 8.4 - 10.2 mg/dL [facility] Blood Venous blood specimen / Unknown 09/16/2024 9:37 AM EST 09/16/2024 11:02 AM EST us Suzanne Arthur DO LAB BLOOD ORDERABLES Final R esult [facility] [address] [place] [phone] * Hemoglobin A1c (09/16/2024 9:37 AM EST) Hemoglobin A1c 5.7 <6.0 % [facility] Comment:Hemoglobin A1C Refer ence Range Adults: 4.8 - 6.0 % Non diabetic: < 6.0 % Goal: < 7.0 %Additional Action Suggested: > 8.0 %Note: Hemoglobin A1c results are invalid for patients with abnormal amounts of HbF. Blood transfusions may impact the HbA1c concentration in the patient sample. Estimated Average Glucose 117 mg/dL [facility] Comment:eAG = Estimated ave rage glucose which is %A1C expressed asaverage glucose, using the formula of the D7N-ZvkuweySvxkzge Glucose study (ADAG), Diabetes Care, Vol.31,#8,2007 Blood Venous blood specimen / Unknown 09/16/2024 9:37 AM EST 09/16/2024 11:02 AM EST Suzanne Sandhya DO LAB BLOOD ORDERABLES Final R esult Performing Organization Address City/[facility]/ZIP Co de Phone Number [facility] [address] [place] [phone] * Hepatic Function Panel (09/16/2024 9:37 AM EST) Bilirubin, Total 0.4 0.0 - 1.0 mg/dL [facility] Bilirubin, Direct 0.1 0.0 - 0.5 mg/dL [facility] Aspartate Amino Transferase 20 5 - 31 U/L [facility] Alanine Aminotransferase 17 0 - 31 U/L [facility] Total Protein 7.8 6.5 - 8.0 g/dL [facility] Albumin Level 3.9 3.5 - 5.0 g/dL [facility] Alkaline Phosphatase 90 39 - 117 U/L [facility] Blood Venous blood specimen / Unknown 09/16/2024 9:37 AM EST 09/16/2024 11:02 AM EST Suzanne Sandhya DO LAB BLOOD ORDERABLES Final R esult Performing Organization Address City/[facility]/ZIP Co de Phone Number [facility] [address] [place] [phone] * TSH (09/16/2024 9:37 AM EST) Thyroid Stimulating Hormone 2.82 0.32 - 4.0 uIU/mL [facility] Comment:Note: A sustained TS H level above 2.5 uIU/mL may warrant further investigation. TSH 3rd Generation ([facility]) Blood Venous blood specimen / Unknown 09/16/2024 9:37 AM EST 09/16/2024 11:02 AM EST us Suzanne Arthur DO LAB BLOOD ORDERABLES Final R esult Performing Organization Address City/[facility] Co de Phone Number [facility] [address] [place] [phone] * (ABNORMAL) Lipid Panel, Standard (09/16/2024 9:37 AM EST) Triglycerides 82 <150 mg/dL [facility] Comment:Desirable Triglyceri de: less than 150 mg/dLBorderline High Triglyceride 150-199 mg/dLHigh Triglyceride: 200-499 mg/dLVery High Triglyceride: greater than or equal to 5OO mg/dL Cholesterol 180 <200 mg/dL [facility] Comment:Desirable Cholestero l: less than 200 mg/dLBorderline High Cholesterol: 200-239 mg/dLHigh Cholesterol: greater than 239 mg/dL LDL Cholesterol Calculated 107(H) <100 mg/dL [facility] Comment:Desirable LDL: less than 100 mg/dLNear Optimal/Above Optimal LDL: 110- 129 mg/dLBorderline High LDL: 130-159 mg/dLHigh LDL: 160-189 mg/dLVery High LDL: greater than or equal to 190 mg/dL HDL Cholesterol 57 >40 mg/dL [facility] Comment:Desirable HDL: great er than 40 mg/dL Note: This HDL assay may give artificially low results in patients with liver disease. Blood Venous blood specimen / Unknown 09/16/2024 9:37 AM EST 09/16/2024 11:02 AM EST us Suzanne Arthur DO LAB BLOOD ORDERABLES Final R esult Performing Organization Address City/[facility]/ZIP Co de Phone Number [facility] [address] [place] [phone] * Vitamin D, 25-Hydroxy, Total, Immunoassay (09/16/2024 9:37 AM EST) Vitamin D 25-OH Total 68.7 >30 ng/mL [facility] Comment:Health Based Referen ce Values*< 20 ng/mL [id number] ng/mL Insufficient> 30 ng/mL Sufficient*Prasanna TELLEZ. N [...] EST 09/16/2024 11:02 AM EST Suzanne Arthur ubigrate LAB BLOOD ORDERABLES Final R esult Performing Organization Address City/[facility]/ZIP Co de Phone Number [facility] [address] [place] [phone] * T4, Free (09/16/2024 9:37 AM EST) Free T4 (Free Thyroxine) 1.01 0.71 - 1.85 ng/dL [facility] Blood Venous blood specimen / Unknown 09/16/2024 9:37 AM EST 09/16/2024 11:02 AM EST Suzanne Arthur ubigrate LAB BLOOD ORDERABLES Final R esult Performing Organization Address City/[facility]/ZIP Co de Phone Number [facility] [address] [place] [address] [phone] documented in this encounter Visit Diagnoses Diagnosis Essential hypertension- Primary Unspecified essential hypertension Prediabetes Other abnormal glucose Pain of right heel Healthcare maintenance Encounter for immunization documented in this encounter Additional Health Concerns Assessment Noted Time PHQ-9 Depression Total Score: 0 09/16/19 25 9:04 AM EST documented as of this encounter Care Teams Heat Seal Operator Relationship Specialty Start Date End Date Suzanne Arthur DO [address] [place] [phone] PCP - General Family Medicine 03/27/15 documented as of this encounter
[2024-09-16 13:48] LABS: Creatinine Urine 109.92 mg/dL; Microalbumin Urine < 5.0 mg/L
== END 2024-09-16 11:56 | disposition home or self-care (01) ==
LOC: HO.HHCL 11:55
PROVIDERS: Visit Provider Family Medicine
DX: I10 Essential (primary) hypertension (principal); R73.03 Prediabetes
CPT/HCPCS: 82570

== ENCOUNTER 2024-10-17 15:34 | Outpatient (REF) | payer MEDICAID, SELFPAY ==
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
--- OUTSIDE RECORDS SUMMARY | 2024-10-17 18:02 | XMS_ITS | Encounter Summary ---
Author Organization [employer] Address [address] [facility] 7t [place] [address] Care Team Providers Care Radiator Specialist Name Role Phone Sandhya Suzanne Primary Care Provider [phone]- [phone] Reason for Visit * Reason Onset Date Comments referral 06/05/2023 Encounter Details Date Type Department Care Team ([facility] st Contact Info) Description 06/05/2023 Telephone [facility] ADULT D[facility]AL [address] [place] [address] Caden Elizalde DDS [address] [place] [address] referral Social History Tobacco Use Types Packs/Day [...] Nothing scanned in. Their fax number is [phone]. Phone number to office if need to reach is [phone]. documented in this encounter Plan of Treatment Upcoming Encounters Date Type Department Care Team (Late st Contact Info) Description 02/21/2025 8:00 AM EDT Office Visit [facility] ADULT [facility] [address] [place] [address] Joyce Frost documented as of this encounter Visit Diagnoses Not on filedocumented in this encounter Additional Health Concerns Assessment Noted Time PHQ-9 Depression Total Score: 0 12/18/19 23 11:44 AM EDT documented as of this encounter Care Teams Radiator Specialist Relationship Specialty Start Date End Date Suzanne Arthur DO [address] [place] [address] PCP - General Family Medicine 03/27/15 documented as of this encounter
--- OUTSIDE RECORDS SUMMARY | 2024-10-17 18:02 | XMS_ITS | Encounter Summary ---
Author Organization [employer] Address [address] [facility] 7t [place] [address] Care Team Providers Care Loader Operator Supervisor Name Role Phone Sandhya Suzanne Primary Care Provider + [phone] Encounter Details Date Type Department Care Team ([facility] st Contact Info) Description 10/14/2024 Population Health Risk Score [facility] ([facility]) Department [address] [phone] Provider, Population Health Generic Social History Tobacco Use Types Packs/Day Years [...] 8:00 AM EDT Office Visit [facility] ADULT D[facility] [address] [place] [address] Joyce Frost documented as of this encounter Visit Diagnoses Not on filedocumented in this encounter Additional Health Concerns Assessment Noted Time PHQ-9 Depression Total Score: 0 09/16/19 25 9:04 AM EST documented as of this encounter Care Teams Loader Operator Supervisor Relationship Specialty Start Date End Date Suzanne Arthur DO [address] [place] [address] PCP - General Family Medicine 03/27/15 documented as of this encounter
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
--- OUTSIDE RECORDS SUMMARY | 2024-10-17 18:02 | XMS_ITS | Encounter Summary ---
Author Organization [facility] Address [address] [place] [address] [address] [place] [address] Care Team Providers Care Global Sales Executive Name Role Phone Suzanne Arthur DO Primary Care Provider Encounter Details Date Type Department Care Team (Latest Contact Info) Description 08/20/[address] [facility] CONVERSIONS Dental, Provider, DDS Social History [...] 8:00 AM EDT Office Visit [facility] ADULT DENTAL [address] [place] [address] Joyce Frost documented as of this encounter Visit Diagnoses Not on filedocumented in this encounter Care Teams Global Sales Executive Relationship Specialty Start Date End Date Suzanne Arthur DO [address] [place] [address] PCP - General Family Medicine 03/27/15 documented as of this encounter
--- OUTSIDE RECORDS SUMMARY | 2024-10-17 18:02 | XMS_ITS | Encounter Summary ---
Author Organization [employer] Address [address] [facility] [address]t [place] [address] Care Team Providers Care Rubber Grinder Name Role Phone MarissaSuzanne greenfield Primary Care Provider Encounter Details Date Type Department Care Team (Latest Contact Info) Description 10/17/2024 Travel Social History Tobacco Use Types Packs/Day [...] Visit [facility] [address] [place] [address] Joyce Frost documented as of this encounter Visit Diagnoses Not on filedocumented in this encounter Additional Health Concerns Assessment Noted Time PHQ-9 Depression Total Score: 0 09/16/19 25 9:04 AM EST documented as of this encounter Care Teams Rubber Grinder Relationship Specialty Start Date End Date Suzanne Arthur DO [address] [place] [address] PCP - General Family Medicine 03/27/15 documented as of this encounter
--- OUTSIDE RECORDS SUMMARY | 2024-10-17 18:02 | XMS_ITS | Encounter Summary ---
Author Organization [employer] Address [address] [facility] [address]t [place] [address] Care Team Providers Care Security Dispatcher Name Role Phone Shameka Arthurfer Primary Care Provider + [phone] Encounter Details Date Type Department Care Team ([facility] st Contact Info) Description 11/11/2023 Orders Only [facility] [address] [place], [place] [phone] ProviderSiomara MD Social History Tobacco Use Types [...] Description 02/21/2025 8:00 AM EDT Office Visit [facility] ADULT DENT[facility] [address] [place] [address] Joyce Frost documented as of this encounter [...] documented as of this encounter Care Teams Security Dispatcher Relationship Specialty Start Date End Date Suzanne Arthur DO [address] [place] [address] PCP - General Family Medicine 03/27/15 documented as of this encounter
--- OUTSIDE RECORDS SUMMARY | 2024-10-17 18:02 | XMS_ITS | Encounter Summary ---
Author Organization [employer] Address [address] [facility] [address] [place] [address] Care Team Providers Care Rn Plastic Surgery Name Role Phone Suzanne Arthur DO Primary Care Provider [phone] Reason for Visit * Reason Onset Date Comments Med Refill 12/03/2022 Encounter Details Date Type Department Care Team ([facility] st Contact Info) Description 12/03/2022 Telephone [facility] [address] [place] [address] Suzanne Arthur DO [address] [place] [address] Med Refill Social History Tobacco Use Types [...] 10:44 AM EDT Medications were sent to [facility] on 08/07/22 90 day supply with 1 refill. * Telephone Encounter - Willy Woodruff - 12/03/2022 10:26 AM EDT Tc from pt requesting med refill hydroCHLOROthiazide (HYDRODiuril) 25 MG tablet enalapril (Vasotec) 20 MG tablet documented in this encounter Plan of Treatment Upcoming Encounters Date Type Department Care Team (Late st Contact Info) Description 02/21/2025 8:00 AM EDT Office Visit [facility] ADULT DENT[facility] [address] [place] [address] Joyce Frost documented as of this encounter Visit Diagnoses Not on filedocumented in this encounter Care Teams Rn Plastic Surgery Relationship Specialty Start Date End Date Suzanne Arthur DO [address] [place] [address] PCP - General Family Medicine 03/27/15 documented as of this encounter
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
== END 2024-10-17 15:35 | disposition home or self-care (01) ==
LOC: HO.HHCX 15:34
PROVIDERS: Visit Provider Nurse Practitioner Family
DX: M79.602 Pain in left arm (principal); V89.2XXD Person injured in unspecified motor-vehicle accident, traffic, subsequent encounter
CPT/HCPCS: 73060

== ENCOUNTER → 2024-10-17 15:35 | Outpatient (BNV) | payer MEDICAID, SELFPAY | PROVIDERS: Visit Provider Radiology Diagnostic Radiology | DX: M79.622 Pain in left upper arm (principal); Z04.3 Encounter for examination and observation following other accident | CPT/HCPCS: 73060 ==

== ENCOUNTER 2025-03-06 14:05 | Outpatient (REF) | payer MEDICAID, SELFPAY ==
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
--- NOTE | ~2025-03-06 | XR_ITS ---
EXAMINATION: XR LUMBOSACRAL SPINE CLINICAL INFORMATION: atraumatic left low back pain COMPARISON: None available. TECHNIQUE: AP and lateral views. FINDINGS: Multilevel anterior marginal osteophyte formation/syndesmophyte examination, endplate sclerosis, decreased intervertebral disc height throughout the axial skeleton. No acute cortical disruption or gross malalignment. No lytic or blastic lesions. Facet joint hypertrophy at L4-5 and L5-S1. XR/XR lumbar spine 2-3V IMPRESSION: Multilevel thoracolumbar spondylosis without acute fracture or trauma stenosis. Electronically signed by: Tung Moncada MD 03/06/2025 02:30 PM EDT
--- OUTSIDE RECORDS SUMMARY | 2025-03-06 14:14 | XMS_ITS | Encounter Summary ---
Author Organization [employer] Address [address] [place] [address] Care Team Providers Care Synthetic Chemist Name Role Phone MarissaSuzanne greenfield Primary Care Provider + [phone] Encounter Details Date Type Department Care Team (Latest Contact Info) Description 03/06/2025 Travel Social History Tobacco Use Types Packs/Day [...] Care Team (Late st Contact Info) Description 05/26/2025 9:30 AM EDT Office Visit [facility] [address] [place] [address] Blayne, Casie, OD [address] [place] [address] 09/05/2025 10:00 AM EST Office Visit [facility] [address] [place] [address] Alejandrina, Daniella [address] [place] [address] documented as of this encounter Visit Diagnoses Not on filedocumented in this encounter Additional Health Concerns Assessment Noted Time PHQ-9 Depression Total Score: 0 09/16/19 25 9:04 AM EST documented as of this encounter Care Teams Synthetic Chemist Relationship Specialty Start Date End Date Suzanne Arthur DO [address] [place] [address] PCP - General Family Medicine 03/27/15 documented as of this encounter
== END 2025-03-06 14:06 | disposition home or self-care (01) ==
LOC: HO.US 14:05
PROVIDERS: PCP Family Medicine; Visit Provider Emergency Medicine
DX: M79.661 Pain in right lower leg (principal); M54.50 Low back pain, unspecified
CPT/HCPCS: 72100; 93971

== ENCOUNTER → 2025-03-06 14:11 | Outpatient (BNV) | payer MEDICAID, SELFPAY | PROVIDERS: PCP Family Medicine; Visit Provider Radiology Diagnostic Radiology | DX: M79.661 Pain in right lower leg (principal); M54.50 Low back pain, unspecified | CPT/HCPCS: 72100; 93971 ==